=== PATIENT | female | born 1990 | race Caucasian/White ===

== ENCOUNTER 2016-06-10 12:47 | Emergency (ER) | payer MEDICAID ==
[2016-05-22 16:06] VITALS: Ht 152.4 cm; Wt 50.8 kg
[~2016-06-10] VITALS: Ht 152.4 cm; Wt 50.8 kg
[2016-06-10 12:47] VITALS: BP 116/51; PULSE 68; RESP 18; TEMP 97.1; O2SAT 98
[~2016-06-10 12:47] MED LIST: LORA-259 PO; PRO40 PO
[2016-11-08] MEDS ORDERED: ONDA4TAB5 PO (12:23)
[2016-11-08] MEDS ORDERED: OMEP20TA20 PO (12:24)
== END 2016-06-10 14:11 | disposition left against medical advice (07) ==
LOC: SED 12:47
DX: G43.A0 Cyclical vomiting, in migraine, not intractable (principal); F12.10 Cannabis abuse, uncomplicated; Z53.21 Procedure and treatment not carried out due to patient leaving prior to being seen by health care provider

== ENCOUNTER 2016-06-17 13:41 | Inpatient (IN) | payer MEDICAID ==
[2016-05-22 16:06] VITALS: Ht 152.4 cm; Wt 49.4 kg
[~2016-06-17] VITALS: Ht 152.4 cm; Wt 49.4 kg
[2016-06-17 13:50] VITALS: BP 149/90; PULSE 87; RESP 20; TEMP 97.5; O2SAT 99
[2016-06-17] MEDS ORDERED: NACL 0.9% 1,000 ML IV ONE (14:24)
[2016-06-17] MEDS ORDERED: KETOROLAC TROMETHAMINE 60 MG/2 ML VIAL IM ONE (14:30)
[2016-06-17] MEDS ORDERED: ONDANSETRON HCL 4 MG/2 ML VIAL IVP ONE (14:30)
[2016-06-17 14:33] LABS: MONOCYTES # (AUTO) 0.1 K/uL (0.0-1.0)
[2016-06-17 14:33] LABS: BILIRUBIN,URINE NEGATIVE (NEGATIVE); BLOOD, URINE NEGATIVE (NEGATIVE); CLARITY/URINE CLEAR (CLEAR); COLOR,URINE YELLOW (YELLOW); GLUCOSE,URINE NEGATIVE (NEGATIVE); KETONES,URINE 3+ (NEGATIVE); LEUKOCYTE ESTERASE ,URINE NEGATIVE (NEGATIVE); NITRITE, URINE NEGATIVE (NEGATIVE); PH,URINE 8.5 (5.0-8.0); PROTEIN URINE TRACE (NEGATIVE); UROBILINOGEN,URINE 0.2 (0.2-1.0)
[2016-06-17 14:40] LABS: MONOCYTES % (AUTO) 1.4 % (1.7-9.3)
[2016-06-17 14:43] LABS: INR 1.1 (0.8-1.2); PROTHROMBIN TIME 11.4 SECS (9.5-12.5)
[2016-06-17 14:44] LABS: BASOPHILS # (AUTO) 0.2 K/uL (0.0-0.2); BASOPHILS % (AUTO) 1.8 % (0.0-2.0); EOSINOPHILS % (AUTO) 0.1 % (0.0-4.0); HEMATOCRIT 51.4 % (36-48); HEMOGLOBIN 16.7 g/dL (12.0-16.0); LYMPHOCYTES # (AUTO) 0.8 K/uL (1.0-5.5); LYMPHOCYTES % (AUTO) 7.9 % (20.5-51.5); MEAN CORPUSCULAR HEMOGLOBIN 27 pg (27-31); MEAN CORPUSCULAR HGB CONC 33 % (32-36); MEAN CORPUSCULAR VOLUME 84 fL (79.0-98.0); NEUTROPHILS % (AUTO) 88.8 % (40.0-70.0); PLATELET COUNT (AUTO) 271 K/uL (130-430); RED BLOOD CELL COUNT(AUTO) 6.12 MIL/uL (4.2-6.2); RED CELL DISTRIBUTION WIDTH 13.6 % (9.0-15.0); WHITE BLOOD COUNT (AUTO) 10.1 K/uL (4.8-10.8)
[2016-06-17] MEDS ORDERED: KETOROLAC TROMETHAMINE 30 MG VIAL IVP ONE (14:45)
[2016-06-17 14:46] LABS: BACTERIA,URINE FEW /HPF (None Seen); MUCUS,URINE 2+ /LPF (None Seen); RBC,URINE 0-3 /HPF (0-3); WBC,URINE 0-3 /HPF (0-3)
[2016-06-17 14:50] LABS: BARBITURATE, URINE NEGATIVE (NEG <=200); BENZODIAZEPINE, URINE NEGATIVE (NEG <=150); CANNABINOID, URINE POSITIVE (NEG <=50); COCAINE, URINE NEGATIVE (NEG <=150); METHAMPHETAMINES SCREEN,URINE NEGATIVE (NEG <=500); UR TRICYCLIC ANTIDEPRESSANTS POSITIVE (NEG <=300); URINE AMPHETAMINE NEGATIVE (NEG <=500); URINE METHADONE NEGATIVE (NEG <=200)
[2016-06-17 14:51] LABS: OPIATE, URINE NEGATIVE (NEG <=100); PHENCYCLIDINE SCREEN,URINE NEGATIVE (NEG <=25); URINE OXYCODONE SCREEN NEGATIVE (NEG <=100); URINE PROPOXYPHENE SCREEN NEGATIVE (NEG <=300)
[2016-06-17 14:58] LABS: CALCIUM 10.7 mg/dL (8.4-11.0); CREATININE 0.63 mg/dL (0.55-1.30); POTASSIUM 4.1 mmol/L (3.5-5.1)
[2016-06-17 15:05] LABS: ALBUMIN 4.9 g/dL (3.4-4.8); TOTAL BILIRUBIN 0.9 mg/dL (0.0-1.0); TOTAL PROTEIN, SERUM 9.8 g/dL (6.4-8.3)
[2016-06-17] MEDS ORDERED: LORazepam 1 MG TABLET PO ONE (15:15)
[2016-06-17] MEDS ORDERED: LORazepam 2 MG/ML VIAL IVP ONE (15:30)
[2016-06-17] MEDS ORDERED: LORazepam 2 MG/ML VIAL (FOR ER USE) ONE (15:38)
[2016-06-17 16:33] VITALS: BP 129/85; PULSE 87; RESP 18; TEMP 97.2; O2SAT 96
[2016-06-17] MEDS ORDERED: MORPHINE 2 MG/ML INJ. SYRINGE IVP PRN (17:45)
[2016-06-17] MEDS ORDERED: PANTOPRAZOLE SODIUM 40 MG/VIAL (PROTONIX) IVP ONE (18:00)
[2016-06-17] MEDS: NACL 0.9% 1,000 ML IV SCH (18:09)
[2016-06-17] MEDS: ALBUTEROL SULFATE 2.5 MG/3 ML INH (20:20)
[2016-06-17] MEDS: LORazepam 2 MG/ML VIAL IM PRN (20:31)
[2016-06-17] MEDS ORDERED: ONDANSETRON HCL 4 MG/2 ML VIAL ONE (20:31)
[2016-06-17 21:00] VITALS: BP 129/85; PULSE 100
[2016-06-17] MEDS ORDERED: ALBUTEROL MDI INHALATION 8 GM INH INH SCH (21:00)
[2016-06-17] MEDS: ONDANSETRON HCL 4 MG/2 ML VIAL IVP PRN (21:20)
[2016-06-18] VITALS (7 sets, daily range): BP systolic 114–149; BP diastolic 76–106; PULSE 59–83; RESP 16–18; TEMP 96.9–98.9; O2SAT 98–100
[2016-06-18] MEDS: NACL 0.9% 1,000 ML IV SCH ×3 (04:29→23:17)
[2016-06-18] MEDS: ONDANSETRON HCL 4 MG/2 ML VIAL IVP PRN ×2 (06:26→18:48)
[2016-06-18] MEDS ORDERED: ONDANSETRON HCL 4 MG/2 ML VIAL ONE (06:29)
[2016-06-18 06:55] LABS: BASOPHILS % (AUTO) 0.2 % (0.0-2.0); EOSINOPHILS # (AUTO) 0.1 K/uL (0.0-0.4); EOSINOPHILS % (AUTO) 1.5 % (0.0-4.0); HEMATOCRIT 38.9 % (36-48); HEMOGLOBIN 13.1 g/dL (12.0-16.0); LYMPHOCYTES # (AUTO) 1.5 K/uL (1.0-5.5); LYMPHOCYTES % (AUTO) 18.7 % (20.5-51.5); MEAN CORPUSCULAR HEMOGLOBIN 28 pg (27-31); MEAN CORPUSCULAR HGB CONC 34 % (32-36); MEAN CORPUSCULAR VOLUME 84 fL (79.0-98.0); MONOCYTES # (AUTO) 0.6 K/uL (0.0-1.0); MONOCYTES % (AUTO) 7.3 % (1.7-9.3); NEUTROPHILS # (AUTO) 5.8 K/uL (1.8-7.7); NEUTROPHILS % (AUTO) 72.3 % (40.0-70.0); PLATELET COUNT (AUTO) 246 K/uL (130-430); RED BLOOD CELL COUNT(AUTO) 4.62 MIL/uL (4.2-6.2); RED CELL DISTRIBUTION WIDTH 13.8 % (9.0-15.0)
[2016-06-18] MEDS: ALBUTEROL SULFATE 2.5 MG/3 ML INH ×4 (07:00→20:01)
[2016-06-18 07:35] LABS: ALBUMIN 3.7 g/dL (3.4-4.8); CALCIUM 8.7 mg/dL (8.4-11.0); CREATININE 0.45 mg/dL (0.55-1.30); POTASSIUM 3.8 mmol/L (3.5-5.1); THYROID STIMULATING HORMONE 0.29 uIu/mL (0.34-4.82); TOTAL BILIRUBIN 0.5 mg/dL (0.0-1.0); TOTAL PROTEIN, SERUM 6.7 g/dL (6.4-8.3)
[2016-06-18] MEDS: LORazepam 2 MG/ML VIAL IM PRN ×3 (09:52→18:37)
[2016-06-18] MEDS: MORPHINE 2 MG/ML INJ. SYRINGE IVP PRN ×2 (09:53→18:47)
[2016-06-18] MEDS: PANTOPRAZOLE SODIUM 40 MG/VIAL (PROTONIX) IVP SCH (10:05)
[2016-06-19 00:05] VITALS: BP 115/74; PULSE 70; RESP 16; TEMP 97.9; O2SAT 98
[2016-06-19] MEDS: ONDANSETRON HCL 4 MG/2 ML VIAL IVP PRN (04:19)
[2016-06-19 04:24] VITALS: BP 118/76; PULSE 74; RESP 16; TEMP 98.4; O2SAT 98
[2016-06-19] MEDS: ALBUTEROL SULFATE 2.5 MG/3 ML INH ×2 (07:00→11:00)
[2016-06-19] MEDS: PANTOPRAZOLE SODIUM 40 MG/VIAL (PROTONIX) IVP SCH (07:35)
[2016-06-19 07:59] VITALS: BP 144/81; PULSE 70; RESP 20; TEMP 98.7; O2SAT 100
[2016-06-19] MEDS: LORazepam 2 MG/ML VIAL IM PRN (08:01)
[2016-06-19 11:12] LABS: CALCIUM 8.9 mg/dL (8.4-11.0); CREATININE 0.52 mg/dL (0.55-1.30); POTASSIUM 3.5 mmol/L (3.5-5.1)
[2016-06-19] MEDS ORDERED: HYDROcodone/ACETAMIN 5-325 MG TAB (NORCO/ VICODIN) PO PRN (11:15)
[2016-06-19 11:30] VITALS: BP 121/67; PULSE 70; RESP 19; TEMP 97.2; O2SAT 99
[2016-06-19 13:47] VITALS: BP 121/67; PULSE 70; RESP 19; TEMP 97.2; O2SAT 99
[2016-11-08] MEDS ORDERED: ONDA4TAB5 PO (12:23)
[2016-11-08] MEDS ORDERED: OMEP20TA20 PO (12:24)
== END 2016-06-19 14:15 | disposition home or self-care (01) | DRG 249 ==
LOC: SED 13:41 → STU 15:56
PROVIDERS: ADMIT Internal Medicine; ATTEND Internal Medicine
DX: R11.2 Nausea with vomiting, unspecified (principal); E87.1 Hypo-osmolality and hyponatremia; F41.9 Anxiety disorder, unspecified; R10.13 Epigastric pain; J45.909 Unspecified asthma, uncomplicated; F12.10 Cannabis abuse, uncomplicated; Y92.89 Other specified places as the place of occurrence of the external cause; Z90.49 Acquired absence of other specified parts of digestive tract; Z79.899 Other long term (current) drug therapy
CPT/HCPCS: 36415; 74020-TC; 80048; 80053; 80307; 81000-TC; 83690-TC; 83735-TC; 84439; 84443-TC; 84703; 85025; 85610-TC; 85730-TC; 87081; 93005; 94640; 94760; 96361; 96374; 96375; 99285; C9113; J1885; J2060; J2270; J2405; J7030

== ENCOUNTER 2016-08-07 09:36 | Emergency (ER) | payer MEDICAID ==
[~2016-08-07] VITALS: Ht 152.4 cm; Wt 49.9 kg
[2016-08-07] MEDS ORDERED: NACL 0.9% 1,000 ML IV ONE (09:44)
[2016-08-07 09:45] VITALS: BP_SYST 151
[2016-08-07] MEDS ORDERED: DEXAMETHASONE SOD PHOSPHATE 10 MG/ML VIAL IVP ONE (09:45)
[2016-08-07] MEDS ORDERED: KETOROLAC TROMETHAMINE 30 MG VIAL IVP ONE (09:45)
[2016-08-07] MEDS ORDERED: PROCHLORPERAZINE EDISYLATE 10 MG/2 ML VIAL IVP ONE (09:45)
[2016-08-07] MEDS ORDERED: ONDANSETRON HCL 4 MG/2 ML VIAL IVP ONE (09:45)
--- NOTE | 2016-08-07 09:45 | NUR ---
Patient to ER bed 04 to gown for evaluation. Side rails up.
--- NOTE | 2016-08-07 09:45 | NUR ---
Dr Mcwilliams at bedside examining patient
--- NOTE | 2016-08-07 09:46 | NUR ---
Pt AAOx4 c/o MICHELLE.Pt h.as sensitivity to noise stimuli and light. IV established 22G.
[2016-08-07 10:58] LABS: BILIRUBIN,URINE 1+ (NEGATIVE); BLOOD, URINE 3+ (NEGATIVE); CLARITY/URINE CLOUDY (CLEAR); COLOR,URINE ORANGE (YELLOW); GLUCOSE,URINE NEGATIVE (NEGATIVE); KETONES,URINE NEGATIVE (NEGATIVE); LEUKOCYTE ESTERASE ,URINE 2+ (NEGATIVE); NITRITE, URINE POSITIVE (NEGATIVE); PROTEIN URINE 3+ (NEGATIVE)
[2016-08-07 11:05] LABS: BACTERIA,URINE FEW /HPF (None Seen); RBC,URINE >100 /HPF (0-3); WBC,URINE 20-50 /HPF (0-3)
[2016-08-07 11:06] LABS: MUCUS,URINE 1+ /LPF (None Seen)
[2016-08-07 11:10] LABS: BASOPHILS % (AUTO) 0.4 % (0.0-2.0); EOSINOPHILS # (AUTO) 0.1 K/uL (0.0-0.4); EOSINOPHILS % (AUTO) 2.2 % (0.0-4.0); HEMOGLOBIN 12.4 g/dL (12.0-16.0); LYMPHOCYTES # (AUTO) 0.6 K/uL (1.0-5.5); MEAN CORPUSCULAR HEMOGLOBIN 28 pg (27-31); MEAN CORPUSCULAR HGB CONC 35 % (32-36); MEAN CORPUSCULAR VOLUME 82 fL (79.0-98.0); MONOCYTES # (AUTO) 0.4 K/uL (0.0-1.0); MONOCYTES % (AUTO) 10.1 % (1.7-9.3); NEUTROPHILS # (AUTO) 2.6 K/uL (1.8-7.7); NEUTROPHILS % (AUTO) 71.3 % (40.0-70.0); PLATELET COUNT (AUTO) 226 K/uL (130-430); RED CELL DISTRIBUTION WIDTH 12.2 % (9.0-15.0)
[2016-08-07 11:14] LABS: WHITE BLOOD COUNT (AUTO) 3.7 K/uL (4.8-10.8)
[2016-08-07 11:18] LABS: CALCIUM 7.6 mg/dL (8.4-11.0); CREATININE 0.55 mg/dL (0.55-1.30); POTASSIUM 3.1 mmol/L (3.5-5.1)
[2016-08-07 11:22] LABS: TOTAL BILIRUBIN 0.3 mg/dL (0.0-1.0); TOTAL PROTEIN, SERUM 5.9 g/dL (6.4-8.3)
--- NOTE | 2016-08-07 11:25 | NUR ---
Wilbarger of care received, pt ambulated to bathroom, states she does not have headache anymore, VSS, skin pink and warm, cap refill<3.
[2016-08-07] MEDS ORDERED: POTASSIUM CHLORIDE 20 MEQ TAB.PRT.SR PO ONE (11:30)
[2016-08-07 11:45] VITALS: BP_SYST 148
--- NOTE | 2016-08-07 11:49 | NUR ---
Patient given written and verbal discharge instructions and verbalizes understanding. ER MD discussed with patient the results and treatment provided.Patient in stable condition. ID arm band removed. IV catheter removed intact and dressing applied, no active bleeding. Rx of Nitrofurantoin given. Patient educated on pain management and to follow up with PMD. Pain Scale 0/10. Opportunity for questions provided and answered.
== END 2016-08-07 11:49 | disposition home or self-care (01) ==
LOC: SED 09:36
DX: G43.909 Migraine, unspecified, not intractable, without status migrainosus (principal); N39.0 Urinary tract infection, site not specified; R31.9 Hematuria, unspecified; E87.6 Hypokalemia; J45.909 Unspecified asthma, uncomplicated; R03.0 Elevated blood-pressure reading, without diagnosis of hypertension; Z87.891 Personal history of nicotine dependence
CPT/HCPCS: 36415; 80053; 81000; 82150; 83690; 85025; 87086; 96361; 96374; 96375; 99284; J0780; J1100; J1885; J2405; J7030

== ENCOUNTER 2016-10-20 09:38 | Inpatient (IN) | payer MEDICAID ==
[~2016-10-20] VITALS: Ht 152.4 cm; Wt 48.5 kg
[2016-10-20 09:41] VITALS: BP_SYST 135
--- NOTE | 2016-10-20 09:47 | NUR ---
Pt placed in room 6 c/c vomiting after smoking marijuana since 5am this morning. Endorsed care to Rossy CHEEMA.
[2016-10-20] MEDS ORDERED: NACL 0.9% 1,000 ML IV ONE (09:52)
[2016-10-20] MEDS ORDERED: ONDANSETRON HCL 4 MG/2 ML VIAL IVP ONE ×2 (10:00→10:30)
--- NOTE | 2016-10-20 10:00 | NUR ---
ER at bedside examining patient.
--- NOTE | 2016-10-20 10:13 | NUR ---
# 20 gauge angiocath placed to right hand. Use of asceptic technique. Opsite placed over site. Blood return noted.
[2016-10-20 10:29] LABS: CALCIUM 9.8 mg/dL (8.4-11.0); CREATININE 0.67 mg/dL (0.55-1.30); POTASSIUM 3.9 mmol/L (3.5-5.1)
[2016-10-20] MEDS ORDERED: MORPHINE 2 MG/ML INJ. SYRINGE IVP ONE ×2 (10:30→12:15)
[2016-10-20 10:33] LABS: BASOPHILS # (AUTO) 0.1 K/uL (0.0-0.2); BASOPHILS % (AUTO) 0.4 % (0.0-2.0); EOSINOPHILS # (AUTO) 0.3 K/uL (0.0-0.4); HEMOGLOBIN 15.8 g/dL (12.0-16.0); LYMPHOCYTES # (AUTO) 1.3 K/uL (1.0-5.5); LYMPHOCYTES % (AUTO) 9.3 % (20.5-51.5); MEAN CORPUSCULAR HEMOGLOBIN 27 pg (27-31); MEAN CORPUSCULAR HGB CONC 33 % (32-36); MEAN CORPUSCULAR VOLUME 83 fL (79.0-98.0); MONOCYTES # (AUTO) 0.3 K/uL (0.0-1.0); MONOCYTES % (AUTO) 2.1 % (1.7-9.3); NEUTROPHILS # (AUTO) 12.1 K/uL (1.8-7.7); PLATELET COUNT (AUTO) 330 K/uL (130-430); RED BLOOD CELL COUNT(AUTO) 5.81 MIL/uL (4.2-6.2); RED CELL DISTRIBUTION WIDTH 12.1 % (9.0-15.0); WHITE BLOOD COUNT (AUTO) 14.1 K/uL (4.8-10.8)
[2016-10-20 10:36] LABS: ALBUMIN 4.1 g/dL (3.4-4.8); TOTAL BILIRUBIN 0.4 mg/dL (0.0-1.0); TOTAL PROTEIN, SERUM 7.6 g/dL (6.4-8.3)
[2016-10-20 10:36] LABS: BILIRUBIN,URINE NEGATIVE (NEGATIVE); BLOOD, URINE 1+ (NEGATIVE); CLARITY/URINE CLEAR (CLEAR); COLOR,URINE YELLOW (YELLOW); GLUCOSE,URINE NEGATIVE (NEGATIVE); KETONES,URINE 1+ (NEGATIVE); LEUKOCYTE ESTERASE ,URINE 1+ (NEGATIVE); NITRITE, URINE NEGATIVE (NEGATIVE); PH,URINE 7.5 (5.0-8.0); PROTEIN URINE TRACE (NEGATIVE); UROBILINOGEN,URINE 0.2 (0.2-1.0)
[2016-10-20 10:48] LABS: BACTERIA,URINE MODERATE /HPF (None Seen); RBC,URINE 0-3 /HPF (0-3)
[2016-10-20 11:00] LABS: NEUTROPHILS % (AUTO) 86.2 % (40.0-70.0)
[2016-10-20] MEDS ORDERED: D5NS 1,000 ML IV ONE (12:15)
[2016-10-20] MEDS ORDERED: PROMETHAZINE HCL 25 MG/ML AMP IVP ONE (12:15)
--- NOTE | 2016-10-20 12:20 | NUR ---
CALL TO OBTAIN BED FOR ADMISSION, WILL CALL BACK.
--- NOTE | 2016-10-20 13:07 | NUR ---
Patient will be admitted to [facility]. Admitted to MS unit. Will go to room 135. Belongings list completed. Summary report printed. Report will be given at bedside.
[2016-10-20 13:22] VITALS: BP_SYST 146
--- NOTE | 2016-10-20 13:22 | NUR ---
ADMISSION: The patient, CHAPO OSPINA, 25 y/o, F admitted by WIL LEE MD, was given written information regarding hospital policies, unit procedures and contact persons.
--- NOTE | 2016-10-20 14:00 | NUR ---
ROUNDING NOTES, PT IN BED, NO SOB. C/O NAUSEA AND VOMITING. NOTED VOMITUS AT BEDSIDE IN THE BAG. GIVEN NAUSEA MEDICATIONS ORDERED. BED IN LOW POSITION. CALL LIGHT IN REACH. ENCOURAGED TO CALL FOR ASSIST AND PAIN MEDICATIONS. WILL CONT TO MONITOR.
--- NOTE | 2016-10-20 14:00 | NUR ---
OUNDING NOTES, PT IN BED, NO SOB. C/O NAUSEA AND VOMITING. BED IN LOW POSITION. CALL LIGHT IN REACH. IV FLUIDS INFUSING WELL. ENCOURAGED TO CALL FOR ASSIST AND PAIN MEDICATIONS. WILL CONT TO MONITOR.
[2016-10-20] MEDS: ONDANSETRON HCL 4 MG/2 ML VIAL IVP PRN ×2 (14:24→22:22)
--- NOTE | 2016-10-20 16:00 | NUR ---
DIONTE NOTES, PT IN BED, NO SOB. PT STILL VOMITING. GIVEN NAUSEA MEDICATIONS ORDERED. UNABLE TO GIVE MORE NAUSEA MEDICATIONS. P[T IS AWARE. TOLD PT THAT WE WILL CALL MD FOR MEDICATIONS. BED IN LOW POSITION. CALL LIGHT IN REACH. ENCOURAGED TO CALL FOR ASSIST AND PAIN MEDICATIONS. WILL CONT TO MONITOR.
--- NOTE | 2016-10-20 18:00 | NUR ---
ROUNDING NOTES, PAGED DR LEE AGAIN FOR NAUSEA MEDICATIONS. PT IN BED, NO SOB. C/O NAUSEA AND VOMITING. NOTED VOMITUS AT BEDSIDE IN THE BAG. GIVEN NAUSEA MEDICATIONS ORDERED. BED IN LOW POSITION. CALL LIGHT IN REACH. ENCOURAGED TO CALL FOR ASSIST TO PREVENT FALL. . WILL CONT TO MONITOR.
[2016-10-20] MEDS: METOCLOPRAMIDE HCL 10 MG/2 ML VIAL IVP PRN (18:55)
--- NOTE | 2016-10-20 18:55 | NUR ---
PT GIVEN REGLAN ORDERED FOR NAUSE AND VOMITING. WILL MONITOR.
[2016-10-20 20:00] VITALS: BP_SYST 152
--- NOTE | 2016-10-20 20:00 | NUR ---
Initial PM Note Pt is fully AAO x4. No acute distress noted. IVF is infusing well in left hand.
[2016-10-20] MEDS: MORPHINE 2 MG/ML INJ. SYRINGE IVP PRN (22:25)
--- NOTE | 2016-10-20 22:25 | NUR ---
Pain and Nausea Morphine 2mg and Zofran 4mg were given IV for c/o abdominal pain and nausea/vomiting with relief.
[2016-10-21 00:02] VITALS: BP_SYST 105
--- NOTE | 2016-10-21 01:00 | NUR ---
Rounds Pt is sleeping comfortably in bed.
--- NOTE | 2016-10-21 03:30 | NUR ---
Rounds Pt is sleeping without any respiratory distress noted.
[2016-10-21 04:09] VITALS: BP_SYST 103
--- NOTE | 2016-10-21 05:00 | NUR ---
Rounds Pt is resting comfortably in bed.
[2016-10-21] MEDS: ONDANSETRON HCL 4 MG/2 ML VIAL IVP PRN ×2 (05:43→14:32)
[2016-10-21] MEDS: MORPHINE 2 MG/ML INJ. SYRINGE IVP PRN ×4 (05:44→18:48)
--- NOTE | 2016-10-21 05:44 | NUR ---
Pain and Nausea Morphine 2mg and Zofran 4mg were given IV for c/o abdominal pain and nausea/vomiting with relief.
--- NOTE | 2016-10-21 06:58 | NUR ---
Closing Note Pt is resting comfortably in bed. All pt's needs were attended to. No fall or injury noted this shift. Will endorse to day shift nurse.
--- NOTE | 2016-10-21 07:55 | NUR ---
Nutrition Update Kennedy Scale 16 noted. Pt admitted for nausea, vomiting, back pain. Diet: clear liquid BMI: 20.9 kg/m2 RD to follow per nutrition care standards.
[2016-10-21 08:45] VITALS: BP_SYST 121
--- NOTE | 2016-10-21 09:15 | NUR ---
GI CONSULT CALLED TO DR FERRARO, RE: N/V. SPOKE TO JEFFREY
[2016-10-21] MEDS: D5NS 1,000 ML IV SCH ×2 (09:40→18:48)
--- NOTE | 2016-10-21 09:40 | NUR ---
Routine Patient requested med for 7/10 abdominal pain. PRN pain med given. Patient stable at this time.
[2016-10-21] MEDS: METOCLOPRAMIDE HCL 10 MG/2 ML VIAL IVP PRN ×2 (10:03→18:48)
--- NOTE | 2016-10-21 10:05 | NUR ---
Routine Patient requested nausea med. PRN nausea med given per order. Patient stable.
--- NOTE | 2016-10-21 12:20 | NUR ---
Patient ambulating in hallway. No complaint of pain or nausea at this time.
--- NOTE | 2016-10-21 13:30 | NUR ---
Routine Patient asleep. No distress noted at this time.
--- NOTE | 2016-10-21 18:54 | NUR ---
Routine Patient requested meds for nausea and 8/10 abdominal pain. PRN meds given per order. Patient stable throughout shift.
--- NOTE | 2016-10-21 19:43 | NUR ---
Initial PM Note Pt was received lying in bed fully AAO x4. Speech is clear and no acute distress noted. IVF is infusing well in left hand. Fall and safety precautions are in place. Will continue to monitor pt.
[2016-10-21 19:45] VITALS: BP_SYST 149
--- NOTE | 2016-10-21 22:10 | NUR ---
Ambulation Pt ambulated in the hallway with steady gait. IVF is infusing well in left hand.
[2016-10-22] MEDS: ONDANSETRON HCL 4 MG/2 ML VIAL IVP PRN ×3 (00:08→16:36)
[2016-10-22] MEDS: MORPHINE 2 MG/ML INJ. SYRINGE IVP PRN ×4 (00:08→16:36)
--- NOTE | 2016-10-22 00:08 | NUR ---
Pain and Nausea/Vomiting Morphine 2mg and Zofran 4mg were given IV for c/o abdominal pain and nausea/vomiting with relief.
--- NOTE | 2016-10-22 00:30 | NUR ---
IV Restart IV site in left hand slightly swollen and pt c/o pain at the site. Angiocath was removed intact. New IV line was restarted in rt wrist by Admitting Nurse Toy with Angiocath 22G.
--- NOTE | 2016-10-22 02:00 | NUR ---
Ambulation Pt ambulated in the hallway with steady gait. IVF is infusing well in rt wrist.
[2016-10-22] MEDS: METOCLOPRAMIDE HCL 10 MG/2 ML VIAL IVP PRN ×3 (02:38→21:58)
--- NOTE | 2016-10-22 02:38 | NUR ---
Nausea/Vomiting Reglan 10mg was given IV for nausea and vomiting with relief.
[2016-10-22 04:00] VITALS: BP_SYST 106
--- NOTE | 2016-10-22 04:06 | NUR ---
Pain Morphine 2mg was given IV for c/o abdominal pain with relief.
--- NOTE | 2016-10-22 04:50 | NUR ---
Ambulation Pt ambulated in the hallway with steady gait. IVF is infusing well.
[2016-10-22] MEDS: D5NS 1,000 ML IV SCH ×2 (06:34→16:42)
[2016-10-22 08:00] VITALS: BP_SYST 132
--- NOTE | 2016-10-22 09:26 | NUR ---
MD Rounds Dr. Keys spoke with patient at the bedside. MD entered orders for breathing treatments and Ativan. Patient stated feeling short of breath. Will administer indicated meds and reassess.
[2016-10-22] MEDS ORDERED: IPRATROPIUM BROM 0.5 MG/2.5 ML VIAL.NEB (ATROVENT) INH PRN (09:30)
[2016-10-22] MEDS ORDERED: ALBUTEROL SULFATE 0.083% 2.5 MG/3 ML VIAL.NEB INH PRN (09:30)
[2016-10-22] MEDS: LORazepam 2 MG/ML VIAL IVP PRN ×2 (10:19→21:58)
--- NOTE | 2016-10-22 10:50 | NUR ---
Rounds Patient is in stable condition. Will continue to monitor.
[2016-10-22 12:13] VITALS: BP_SYST 125
--- NOTE | 2016-10-22 12:50 | NUR ---
Rounds Patient is resting in bed. NO signs of distress noted.
--- NOTE | 2016-10-22 14:00 | NUR ---
Rounds Patient is ambulating around the unit.
--- NOTE | 2016-10-22 15:00 | NUR ---
DC planning: Informed pt. that she is ordered transferring to ins. network facilities ie. [facility], [facility], [facility] . The pt. refused the transfer. The pt. made aware that she might have to pay the hospital bill if refused transferring to network. she preferred to go home [phone] leave AMA rather than going to other hp. -- Dr. Sanchez made aware. Cedric BARKER made aware /GENI Herrera CM # [phone]. Addendum: 10/22/16 at 1707 by Mis Uribe RN >> late entry for 1600: No returned call from Sharon benz, another call to Frances # [phone] , stated " she will text Sharon to give me a call." Frances also made aware that the pt. refused transferring and wanted dc home instead. The pt. is symptomatic with vomiting today. Addendum: 10/22/16 at 1713 by Mis Uribe RN >> Called Sharon again at [phone], no answer. The message left to her voice mail to call back matthew or leave message at [phone] for tomorrow cm to speak with her. Addendum: 10/22/16 at 1740 by Mis Uribe RN >> Returned call from Sharon, stated she arranged pt. transferring to [facility] and since the pt. refused the transfer Sharon already cancel the bed. Once again, emelia with [facility] met with the pt , the md explained to her of her prognosis and benefits of transferring to other . the pt. confirming wants to be dc home. --Dr. Phoenix is okay for her to go home per pt. requests. -- DENI Goetz will call dr. sanchez for dc order. Addendum: 10/22/16 at 1744 by Mis Uribe RN >> Another call from DENI Goetz stated that the pt. now changed her mind and wanted to transfer to net work. -- LM to Sharon to assist with the transfer again.
[2016-10-22 16:05] VITALS: BP_SYST 122
--- NOTE | 2016-10-22 16:55 | NUR ---
Spoke with CM Patient has been accepted to contracted facility.
--- NOTE | 2016-10-22 17:30 | NUR ---
Rounds Patient is was refusing to be transferred and wanted to leave AMA. However she changed her mind and agreed to the transfer. Transfer arrangements have already been canceled and CM is gone for the day. Will inform Dr. Keys.
[2016-10-22 17:42] VITALS: BP_SYST 122
[2016-10-22] MEDS: ALBUTEROL SULFATE 0.083% 2.5 MG/3 ML VIAL.NEB INH SCH ×2 (19:00→23:00)
[2016-10-22] MEDS: IPRATROPIUM BROM 0.5 MG/2.5 ML VIAL.NEB (ATROVENT) INH SCH ×2 (19:00→23:00)
--- NOTE | 2016-10-22 19:20 | NUR ---
Closing Note Spoke with Dr. Keys to inform that patient has agreed to transfer but unfortunately all arrangements were canceled because she was refusing transfer. She is aware that she will be financially responsible for any medical expenses not covered by the insurance. Will give report to the oncoming shift.
--- NOTE | 2016-10-22 19:31 | NUR ---
paged paged for Dr Keys, dialed . s/w Jayna.
--- NOTE | 2016-10-22 20:00 | NUR ---
DR ROSA SMITH , updated & made aware patient discharge is on hold , patient did REFUSE to be d/c .
[2016-10-22 21:00] VITALS: BP_SYST 133
--- NOTE | 2016-10-22 22:00 | NUR ---
Patient awake alert ambulating in Chung verbally indicative respirations regular also unlabored .
--- NOTE | 2016-10-22 23:32 | NUR ---
Lorazepam 1 mg ivp administer per patient request for anxiety & helpful .
--- NOTE | 2016-10-22 23:33 | NUR ---
Reglan 10 mg IVP administer for GI upset and helpful .
[2016-10-23 00:11] VITALS: BP_SYST 112
--- NOTE | 2016-10-23 00:54 | NUR ---
Patient resting this hour HOB elevated call ley with patient bed to low position FALL measures implemented & effective .
[2016-10-23] MEDS: ONDANSETRON HCL 4 MG/2 ML VIAL IVP PRN (01:53)
[2016-10-23] MEDS: MORPHINE 2 MG/ML INJ. SYRINGE IVP PRN (01:54)
[2016-10-23 04:19] VITALS: BP_SYST 110
--- NOTE | 2016-10-23 04:19 | NUR ---
ZOFRAN 4 MG IVP administer for c/o GI upset & helpful , patient resting no complaints made .
[2016-10-23] MEDS: D5NS 1,000 ML IV SCH (06:14)
[2016-10-23] MEDS: IPRATROPIUM BROM 0.5 MG/2.5 ML VIAL.NEB (ATROVENT) INH SCH ×3 (07:00→15:00)
[2016-10-23] MEDS: ALBUTEROL SULFATE 0.083% 2.5 MG/3 ML VIAL.NEB INH SCH ×3 (07:00→15:00)
--- NOTE | 2016-10-23 08:10 | NUR ---
Opening Note Report received form Tom CHEEMA. Patient is currently in stable condition and is sleeping in bed. No nausea or vomiting noted. Call light is within reach. Bed is in low position. IV is on the right wrist running D5NS@100. Will continue to monitor.
[2016-10-23 08:21] VITALS: BP_SYST 134
--- NOTE | 2016-10-23 10:02 | NUR ---
Rounds Patient is in stable condition. No complaints of pain or n/v.
--- NOTE | 2016-10-23 11:05 | NUR ---
PAGED DR LEE [phone], SAIRA QUINONES
--- NOTE | 2016-10-23 12:10 | NUR ---
Rounds Patient is resting in bed. No signs of distress noted.
[2016-10-23 12:57] VITALS: BP_SYST 125
--- NOTE | 2016-10-23 14:10 | NUR ---
Rounds Let the patient know that MD is in the unit and will see her shortly. Patient verbalized understanding.
[2016-10-23 15:00] VITALS: BP_SYST 124
--- NOTE | 2016-10-23 15:25 | NUR ---
AMA Note Let the patient know that Dr. Wagoner is covering for Dr. Keys and will be in to see her shortly. Patient stated that she is familiar with Dr. Wagoner and has spoken to him many times during prior hospitalizations. She stated that it is not necessary for her to speak with Dr. Wagoner. Patient was advised of the importance of being assessed by an MD prior to leaving the hospital. She was also advised that she will be liable for medical expenses if she decides to leave against medical advise. Patient verbalized understanding of all instructions and signed the AMA form. ID band and IV site were removed. Boyfriend is at the bedside and will take the patient home. Dr. Wagoner made aware that the patient decided to leave AMA. Patient is in stable condition. She has not experienced nausea or vomiting throughout the shift. Left the unit via wheelchair accompanied by staff and her boyfriend.
== END 2016-10-23 15:30 | disposition left against medical advice (07) | DRG 770 ==
LOC: SED 09:38 → SMU 12:11
PROVIDERS: ADMIT Internal Medicine Hospice and Palliative Medicine; ATTEND Internal Medicine Hospice and Palliative Medicine
DX: F12.988 Cannabis use, unspecified with other cannabis-induced disorder (principal); F19.10 Other psychoactive substance abuse, uncomplicated; Z53.21 Procedure and treatment not carried out due to patient leaving prior to being seen by health care provider; J45.909 Unspecified asthma, uncomplicated; Z90.49 Acquired absence of other specified parts of digestive tract
CPT/HCPCS: 36415; 76700-TC; 80053; 81000-TC; 83690-TC; 85025; 87086; 94640; 94760; 96374; 96375; 96376; 99285; J2060; J2270; J2405; J2550; J2765; J7030; J7042

== ENCOUNTER 2016-11-08 23:41 | Emergency (ER) | payer MEDICAID ==
[~2016-11-08] VITALS: Ht 154.9 cm; Wt 53.1 kg
[~2016-11-08 23:41] MED LIST changes: -LORA-259 PO; +OMEP20TA20 PO; +ONDA4TAB5 PO; -PRO40 PO
[2016-11-08 23:45] VITALS: BP_SYST 147
[2016-11-09 01:10] LABS: BILIRUBIN,URINE NEGATIVE (NEGATIVE); BLOOD, URINE NEGATIVE (NEGATIVE); CLARITY/URINE CLOUDY (CLEAR); COLOR,URINE YELLOW (YELLOW); GLUCOSE,URINE NEGATIVE (NEGATIVE); KETONES,URINE 3+ (NEGATIVE); LEUKOCYTE ESTERASE ,URINE 1+ (NEGATIVE); NITRITE, URINE NEGATIVE (NEGATIVE); PROTEIN URINE TRACE (NEGATIVE); UROBILINOGEN,URINE 0.2 (0.2-1.0)
[2016-11-09 01:23] LABS: BARBITURATE, URINE NEGATIVE (NEG <=200); BENZODIAZEPINE, URINE POSITIVE (NEG <=150); CANNABINOID, URINE POSITIVE (NEG <=50); COCAINE, URINE NEGATIVE (NEG <=150); METHAMPHETAMINES SCREEN,URINE NEGATIVE (NEG <=500); OPIATE, URINE POSITIVE (NEG <=100); PHENCYCLIDINE SCREEN,URINE NEGATIVE (NEG <=25); UR TRICYCLIC ANTIDEPRESSANTS NEGATIVE (NEG <=300); URINE AMPHETAMINE NEGATIVE (NEG <=500); URINE METHADONE NEGATIVE (NEG <=200); URINE OXYCODONE SCREEN NEGATIVE (NEG <=100); URINE PROPOXYPHENE SCREEN NEGATIVE (NEG <=300)
[2016-11-09 01:27] LABS: BACTERIA,URINE FEW /HPF (None Seen); RBC,URINE 0-3 /HPF (0-3)
[2016-11-09 01:28] LABS: MUCUS,URINE None Seen /LPF (None Seen); URINE AMORPHOUS PHOSPHATES 3+ /HPF (None Seen)
[2016-11-09] MEDS ORDERED: NACL 0.9% 1,000 ML IV ONE ×2 (02:37→04:30)
[2016-11-09] MEDS ORDERED: ONDANSETRON 4 MG ODT TAB PO ONE (02:45)
[2016-11-09] MEDS ORDERED: LORazepam 1 MG TABLET PO ONE (02:45)
[2016-11-09 03:12] LABS: BASOPHILS # (AUTO) 0.1 K/uL (0.0-0.2); BASOPHILS % (AUTO) 0.6 % (0.0-2.0); EOSINOPHILS % (AUTO) 0.1 % (0.0-4.0); HEMATOCRIT 46.1 % (36-48); HEMOGLOBIN 15.3 g/dL (12.0-16.0); LYMPHOCYTES # (AUTO) 0.9 K/uL (1.0-5.5); LYMPHOCYTES % (AUTO) 7.6 % (20.5-51.5); MEAN CORPUSCULAR HEMOGLOBIN 27 pg (27-31); MEAN CORPUSCULAR HGB CONC 33 % (32-36); MEAN CORPUSCULAR VOLUME 82 fL (79.0-98.0); MONOCYTES # (AUTO) 0.2 K/uL (0.0-1.0); MONOCYTES % (AUTO) 1.8 % (1.7-9.3); NEUTROPHILS # (AUTO) 11.2 K/uL (1.8-7.7); NEUTROPHILS % (AUTO) 89.9 % (40.0-70.0); PLATELET COUNT (AUTO) 384 K/uL (130-430); RED BLOOD CELL COUNT(AUTO) 5.63 MIL/uL (4.2-6.2); RED CELL DISTRIBUTION WIDTH 12.3 % (9.0-15.0); WHITE BLOOD COUNT (AUTO) 12.4 K/uL (4.8-10.8)
[2016-11-09] MEDS ORDERED: LORazepam 2 MG/ML VIAL IVP ONE (03:15)
[2016-11-09] MEDS ORDERED: ONDANSETRON HCL 4 MG/2 ML VIAL IVP ONE (03:15)
[2016-11-09 03:18] LABS: CREATININE 0.76 mg/dL (0.55-1.30)
[2016-11-09 03:23] LABS: ALBUMIN 4.4 g/dL (3.4-4.8); TOTAL BILIRUBIN 0.6 mg/dL (0.0-1.0); TOTAL PROTEIN, SERUM 8.3 g/dL (6.4-8.3)
[2016-11-09 03:31] LABS: POTASSIUM 2.9 mmol/L (3.5-5.1)
[2016-11-09] MEDS ORDERED: LORazepam 2 MG/ML VIAL (FOR ER USE) ONE (03:39)
[2016-11-09] MEDS ORDERED: POTASSIUM CHLORIDE 20 MEQ TAB.PRT.SR PO ONE (03:45)
[2016-11-09] MEDS ORDERED: PROMETHAZINE HCL 25 MG/ML AMP IM ONE (04:30)
[2016-11-09 06:40] VITALS: BP_SYST 123
== END 2016-11-09 06:40 | disposition home or self-care (01) ==
LOC: SED 23:41
DX: K29.70 Gastritis, unspecified, without bleeding (principal); E86.0 Dehydration; N39.0 Urinary tract infection, site not specified; J45.909 Unspecified asthma, uncomplicated; F41.9 Anxiety disorder, unspecified
CPT/HCPCS: 36415; 80053; 80307; 81000; 85025; 87086; 96361; 96372; 96374; 96375; 99284; J2060; J2405; J2550; J7030; Q0162

== ENCOUNTER 2016-11-09 17:27 | Inpatient (IN) | payer MEDICAID ==
[~2016-11-09] VITALS: Ht 152.4 cm; Wt 57.6 kg
[2016-11-09 17:36] VITALS: BP_SYST 167
[2016-11-09 18:27] LABS: BASOPHILS # (AUTO) 0.1 K/uL (0.0-0.2); BASOPHILS % (AUTO) 0.5 % (0.0-2.0); EOSINOPHILS # (AUTO) 0.1 K/uL (0.0-0.4); EOSINOPHILS % (AUTO) 0.7 % (0.0-4.0); HEMATOCRIT 44.5 % (36-48); HEMOGLOBIN 14.6 g/dL (12.0-16.0); LYMPHOCYTES # (AUTO) 1.8 K/uL (1.0-5.5); MEAN CORPUSCULAR HEMOGLOBIN 27 pg (27-31); MEAN CORPUSCULAR HGB CONC 33 % (32-36); MEAN CORPUSCULAR VOLUME 82 fL (79.0-98.0); MONOCYTES # (AUTO) 0.3 K/uL (0.0-1.0); MONOCYTES % (AUTO) 3.1 % (1.7-9.3); NEUTROPHILS # (AUTO) 8.7 K/uL (1.8-7.7); NEUTROPHILS % (AUTO) 79.7 % (40.0-70.0); PLATELET COUNT (AUTO) 361 K/uL (130-430); RED BLOOD CELL COUNT(AUTO) 5.44 MIL/uL (4.2-6.2); RED CELL DISTRIBUTION WIDTH 12.4 % (9.0-15.0)
[2016-11-09 18:29] LABS: ANION GAP 15 (5-15); CALCIUM 8.7 mg/dL (8.4-11.0); CHLORIDE 105 mmol/L (98-107); GLUCOSE 113 mg/dL (70-99); POTASSIUM 3.4 mmol/L (3.5-5.1); SODIUM SERUM 140 mmol/L (136-145); UREA NITROGEN, BLOOD 8 mg/dL (8-21)
[2016-11-09 18:30] LABS: GFR AFRICAN AMERICAN 132 mL/min (>90)
[2016-11-09 18:35] LABS: ALANINE AMINOTRANSFERASE 34 U/L (12-78); ALBUMIN 4.1 g/dL (3.4-4.8); ASPARTATE AMINOTRANSFERASE 23 U/L (10-37); TOTAL BILIRUBIN 0.9 mg/dL (0.0-1.0); TOTAL PROTEIN, SERUM 7.5 g/dL (6.4-8.3)
[2016-11-09 18:36] LABS: ALCOHOL, BLOOD < 3 mg/dL (<10)
[2016-11-09 18:37] LABS: SALICYLATE 2 mg/dL (3-30)
[2016-11-09 18:39] LABS: ACETAMINOPHEN < 1 ug/mL (1-30)
[2016-11-09 18:43] LABS: BILIRUBIN,URINE NEGATIVE (NEGATIVE); BLOOD, URINE NEGATIVE (NEGATIVE); CLARITY/URINE CLEAR (CLEAR); COLOR,URINE YELLOW (YELLOW); GLUCOSE,URINE NEGATIVE (NEGATIVE); KETONES,URINE 1+ (NEGATIVE); LEUKOCYTE ESTERASE ,URINE NEGATIVE (NEGATIVE); NITRITE, URINE NEGATIVE (NEGATIVE); PROTEIN URINE NEGATIVE (NEGATIVE); UROBILINOGEN,URINE 0.2 (0.2-1.0)
[2016-11-09 18:57] LABS: BARBITURATE, URINE NEGATIVE (NEG <=200); BENZODIAZEPINE, URINE POSITIVE (NEG <=150); CANNABINOID, URINE POSITIVE (NEG <=50); COCAINE, URINE NEGATIVE (NEG <=150); METHAMPHETAMINES SCREEN,URINE NEGATIVE (NEG <=500); OPIATE, URINE POSITIVE (NEG <=100); PHENCYCLIDINE SCREEN,URINE NEGATIVE (NEG <=25); UR TRICYCLIC ANTIDEPRESSANTS NEGATIVE (NEG <=300); URINE AMPHETAMINE NEGATIVE (NEG <=500); URINE METHADONE NEGATIVE (NEG <=200); URINE OXYCODONE SCREEN NEGATIVE (NEG <=100); URINE PROPOXYPHENE SCREEN NEGATIVE (NEG <=300)
--- NOTE | 2016-11-09 20:05 | NUR ---
Placed in room 08 . Placed on manager monitoring, blood pressure machine and pulse oximeter. To gown for exam. Side rails up. Report given to DENI Dixon.
--- NOTE | 2016-11-09 20:10 | NUR ---
Patient to ER C/O LLQ abdominal pain 4/10 and continuous vomiting for the past 4-5 days. Patient denies diarrhea or constipation. Patient has been seen in ER 3 days in a row, and admitted the first time for intractable nausea and vomiting. Patient states that she did not refill her prescription and admits to continue smoking pot. Patient has been observed in ER with her finger in the mouth inducing emesis. AAOx4, unlabored breathing, no acute distress.
--- NOTE | 2016-11-09 20:17 | NUR ---
ER MD HUANG at bedside evaluating the patient
[2016-11-09] MEDS ORDERED: ONDANSETRON HCL 4 MG/2 ML VIAL IVP ONE (20:30)
[2016-11-09] MEDS ORDERED: NACL 0.9% 1,000 ML IV ONE (20:30)
--- NOTE | 2016-11-09 20:43 | NUR ---
Medication reconciliation completed with information provided by - patient states "no home meds". Any prior medication reconciliation on file was reviewed and corrected.
[2016-11-09] MEDS ORDERED: POTASSIUM CHLORIDE 10 MEQ TAB.PRT.SR PO ONE (20:45)
--- NOTE | 2016-11-09 21:06 | NUR ---
Patient will be admitted to care of DR GAYTAN. Admitted to TELE IN unit. Will go to room 135. Belongings list completed. Summary report printed. Report will be given at bedside.
--- NOTE | 2016-11-09 21:10 | NUR ---
Transfer to [facility] via ACLS protocol. Licensed nurse present. IV present no signs or symptoms of infiltration.
[2016-11-09] MEDS: PANTOPRAZOLE SODIUM 40 MG/VIAL (PROTONIX) IVP SCH (21:15)
--- NOTE | 2016-11-09 21:17 | NUR ---
ADMISSION NOTE Received patient from ER via obed, received report from Destiny CHEEMA. Patient admitted with diagnosis of hypokalemia. Patient oriented to hospital routine, call light, toileting and safety-patient verbalized understanding.
[2016-11-09 21:22] VITALS: BP_SYST 152
[2016-11-09] MEDS ORDERED: PANTOPRAZOLE SODIUM 40 MG/VIAL (PROTONIX) IVP ONE (21:45)
--- NOTE | 2016-11-09 21:45 | NUR ---
Ambulation Pt ambulated to the bathroom with steady gait to urinate and back to bed with steady gait. IVF is infusing well in right wrist. Call light is with pt. Pt was instructed to call for assistance as needed and pt verbalized understanding.
--- NOTE | 2016-11-09 22:20 | NUR ---
Dr. Canchola Spoke with Dr. Jesika Lai: follow up IVF and pain medication orders. Dr. Canchola stated she will input some orders. Addendum: 11/09/16 at 2222 by Dalia Ty RN Pt is requesting medication for abdominal pain.
[2016-11-09] MEDS ORDERED: ACETAMINOPHEN 650 MG SUPP.RECT RC PRN (22:45)
[2016-11-09] MEDS ORDERED: LORazepam 2 MG/ML VIAL IVP PRN (22:45)
[2016-11-09] MEDS ORDERED: METOCLOPRAMIDE HCL 10 MG/2 ML VIAL IVP PRN (22:45)
[2016-11-09] MEDS ORDERED: MORPHINE 2 MG/ML INJ. SYRINGE IVP PRN ×2 (22:45)
--- NOTE | 2016-11-09 23:12 | NUR ---
Rounds Pt is resting quietly in bed. Awaiting delivery of IVF with KCL from Airplane Flight Attendant Supervisor.
[2016-11-09 23:15] LABS: HCG,QUAL RESULT NEGATIVE (NEGATIVE)
[2016-11-09] MEDS: KCL 20 mEq in D5/0.45NS 1000mL 1,000 ML IV SCH (23:29)
[2016-11-10 00:35] VITALS: BP_SYST 125
--- NOTE | 2016-11-10 01:00 | NUR ---
Rounds Pt is sleeping without any distress noted. Call light is with pt and IVF is infusing well in Rt wrist.
--- NOTE | 2016-11-10 01:30 | NUR ---
CONSULT: CONSULT CALLED FOR DR. GIPSON I SPOKE WITH MERNA DE DIOS WORKFORCE MANAGEMENT CONSULTANT FOR LEONELA REASON FOR CONSULT: NV. ABD PAIN REQUESTING DR: LUKAS RODRIGUEZ NUMBER I CALLED: [phone]
[2016-11-10] MEDS: ONDANSETRON HCL 4 MG/2 ML VIAL IVP PRN ×2 (02:16→08:54)
--- NOTE | 2016-11-10 02:16 | NUR ---
Nausea Zofran 4mg given IV for c/o severe nausea.
--- NOTE | 2016-11-10 02:25 | NUR ---
Ambulation Pt ambulated in the hallway with steady gait.
--- NOTE | 2016-11-10 02:33 | NUR ---
Anxiety Ativan 0.5mg given IV for c/o severe anxiety.
--- NOTE | 2016-11-10 03:00 | NUR ---
Rounds Pt is sleeping comfortably in bed. No respiratory distress noted.
[2016-11-10 04:00] VITALS: BP_SYST 105
--- NOTE | 2016-11-10 05:00 | NUR ---
Rounds Pt is sleeping comfortably in bed. IVF is infusing well in right wrist. Fall and safety precautions are in place.
[2016-11-10 06:10] VITALS: BP_SYST 98
--- NOTE | 2016-11-10 06:40 | NUR ---
Closing Note Pt is awake and resting comfortably in bed. All pt's needs were attended to. No fall or injury noted this shift. Will endorse to day shift nurse.
[2016-11-10 07:30] LABS: BASOPHILS % (AUTO) 0.1 % (0.0-2.0); EOSINOPHILS # (AUTO) 0.1 K/uL (0.0-0.4); EOSINOPHILS % (AUTO) 0.5 % (0.0-4.0); HEMATOCRIT 41.5 % (36-48); HEMOGLOBIN 13.9 g/dL (12.0-16.0); LYMPHOCYTES # (AUTO) 1.6 K/uL (1.0-5.5); MEAN CORPUSCULAR HEMOGLOBIN 28 pg (27-31); MEAN CORPUSCULAR HGB CONC 33 % (32-36); MEAN CORPUSCULAR VOLUME 83 fL (79.0-98.0); MONOCYTES # (AUTO) 0.7 K/uL (0.0-1.0); MONOCYTES % (AUTO) 6.6 % (1.7-9.3); NEUTROPHILS # (AUTO) 8.7 K/uL (1.8-7.7); NEUTROPHILS % (AUTO) 78.8 % (40.0-70.0); PLATELET COUNT (AUTO) 295 K/uL (130-430); RED BLOOD CELL COUNT(AUTO) 4.99 MIL/uL (4.2-6.2); RED CELL DISTRIBUTION WIDTH 12.5 % (9.0-15.0); WHITE BLOOD COUNT (AUTO) 11.1 K/uL (4.8-10.8)
[2016-11-10 07:32] LABS: ALBUMIN 3.5 g/dL (3.4-4.8); BILIRUBIN,DIRECT 0.1 mg/dL (0.0-0.3); CALCIUM 7.7 mg/dL (8.4-11.0); CREATININE 0.57 mg/dL (0.55-1.30); POTASSIUM 3.1 mmol/L (3.5-5.1); TOTAL BILIRUBIN 0.6 mg/dL (0.0-1.0); TOTAL PROTEIN, SERUM 6.8 g/dL (6.4-8.3)
[2016-11-10] MEDS: KCL 20 mEq in D5/0.45NS 1000mL 1,000 ML IV SCH (07:37)
--- NOTE | 2016-11-10 07:38 | NUR ---
INITIAL NOTE RECEIVED PATIENT FROM COMMUNITY HEALTH COORDINATOR NURSE, PATIENT IS RESTING IN BED, PATIENT IS AWAKE AND ALERT AND ORIENTED X4, ASSESSMENT COMPLETE, PATIENT IS IV IN RIGHT WRIST WITH FLUIDS RUNNING, NO SIGNS OF INFILTRATION NOTED, INSTRUCTED PATIENT TO USE CALL HERNÁNDEZ IF ASSISTANCE IS NEEDED, PATIENT VERBALIZED UNDERSTANDING, NO OTHER NEEDS AT THIS TIME, BED LEFT IN LOWEST POSITION, SIDE RAILS UP, FALL PRECAUTIONS IN PLACE, WILL CONTINUE TO MONITOR.
[2016-11-10 08:10] VITALS: BP_SYST 121
[2016-11-10] MEDS: PANTOPRAZOLE SODIUM 40 MG/VIAL (PROTONIX) IVP SCH (08:48)
--- NOTE | 2016-11-10 08:50 | NUR ---
MEDICATION PATIENT RECEIVED MORNING MEDICATION, REEDUCATED PATIENT ON REASON FOR MEDICATION, PATIENT VERBALIZED UNDERSTANDING, NO OTHER NEEDS AT THIS TIME, WILL CONTINUE TO MONITOR. FALL PRECAUTIONS IN PLACE.
[2016-11-10] MEDS ORDERED: POTASSIUM CHLORIDE 40 MEQ, LIDOCAINE JECT 2% PF 100 MG 50 MG in NS 250 ML IV ONE (09:15)
--- NOTE | 2016-11-10 10:27 | NUR ---
RN ROUNDS PATIENT IS CURRENTLY RESTING IN BED, NO SIGNS OF DISTRESS NOTED, PATIENT HAS NO COMPLAINTS OF PAIN OR DISCOMFORT AT THIS TIME, WILL CONTINUE TO MONITOR, FALL PRECAUTIONS IN PLACE.
[2016-11-10 12:00] VITALS: BP_SYST 124
--- NOTE | 2016-11-10 12:15 | NUR ---
RN ROUNDS PATIENT IS LYING IN BED WATCHING TV, PATIENT HAS NO COMPLAINTS OF PAIN OR DISCOMFORT AT THIS TIME, WILL CONTINUE TO MONITOR.
--- NOTE | 2016-11-10 12:35 | NUR ---
DC PLANNING: S/W patient regarding transferring to [facility] work/[facility] and capped to [facility]. The pt. was readmitted x2 this week with same problems. She refused transferring from [facility] her home is closed by. She stated " she will leave AMA if she is not discharged home." Advised pt. to change her insurance that covers [facility] if she does not want to be transferred anywhere else as per her current [facility]. policy. The pt. stated she will contact her pmd and [facility] to arrange for the changed of insurance.- Dr. Canchola made aware. >> Ami at [facility] made aware, contact # [phone].
--- NOTE | 2016-11-10 13:44 | NUR ---
RN ROUNDS PATIENT IS RESTING IN BED, PATIENT STATED SHE IS THINKING ABOUT SIGNING AGAINST MEDICAL ADVISE, EXPLAINED TO PATIENT RISK FACTOR WHEN SIGNING OUT AMA, PATIENT STATED SHE FEELS MUCH BETTER, WILL CONTINUE TO MONITOR, FALL PRECAUTIONS IN PLACE
--- NOTE | 2016-11-10 14:15 | NUR ---
AMA: Patient does not wish to proceed with medical care recommended by . Patient given information related to possible complications, up to and including , which could occur as a result of leaving hospital at this time. Patient verbalizes understanding of risks involved leaving against medical advice. Patient has signed AMA form.
== END 2016-11-10 14:15 | disposition left against medical advice (07) | DRG 812 ==
LOC: SED 17:27 → STU 21:07
PROVIDERS: ADMIT Internal Medicine; ATTEND Internal Medicine
DX: T40.7X1A Poisoning by cannabis (derivatives), accidental (unintentional), initial encounter (principal); E87.6 Hypokalemia; F41.9 Anxiety disorder, unspecified; Z53.21 Procedure and treatment not carried out due to patient leaving prior to being seen by health care provider; F12.90 Cannabis use, unspecified, uncomplicated; G43.A0 Cyclical vomiting, in migraine, not intractable; J45.909 Unspecified asthma, uncomplicated; Z79.899 Other long term (current) drug therapy; Z90.49 Acquired absence of other specified parts of digestive tract; Z71.51 Drug abuse counseling and surveillance of drug abuser; Y92.89 Other specified places as the place of occurrence of the external cause
CPT/HCPCS: 36415; 80048; 80053; 80076; 80307; 81003; 82150-TC; 83690-TC; 83735-TC; 84703; 85025; 87081; 93005; 96361; 96374; 96375; 99285; C9113; G0480; G0481; G0482; J2060; J2405; J3480; J7030; J7050

== ENCOUNTER 2016-12-18 19:02 | Emergency (ER) | payer MEDICAID ==
[~2016-12-18] VITALS: Ht 152.4 cm; Wt 54.4 kg
[2016-12-18 19:17] VITALS: BP_SYST 133
[2016-12-18] MEDS ORDERED: NACL 0.9% 1,000 ML IV ONE (19:45)
[2016-12-18] MEDS ORDERED: ONDANSETRON HCL 4 MG/2 ML VIAL IVP ONE (19:45)
[2016-12-18] MEDS ORDERED: DIPHENHYDRAMINE INJ 50 MG/ML VIAL IVP ONE (19:45)
[2016-12-18 19:55] LABS: BILIRUBIN,URINE NEGATIVE (NEGATIVE); BLOOD, URINE NEGATIVE (NEGATIVE); CLARITY/URINE CLEAR (CLEAR); COLOR,URINE YELLOW (YELLOW); GLUCOSE,URINE NEGATIVE (NEGATIVE); KETONES,URINE 1+ (NEGATIVE); LEUKOCYTE ESTERASE ,URINE TRACE (NEGATIVE); NITRITE, URINE NEGATIVE (NEGATIVE); PH,URINE 8.5 (5.0-8.0); PROTEIN URINE 2+ (NEGATIVE); UROBILINOGEN,URINE 0.2 (0.2-1.0)
[2016-12-18 20:10] LABS: BACTERIA,URINE FEW /HPF (None Seen); RBC,URINE 0-3 /HPF (0-3)
[2016-12-18 20:11] LABS: MUCUS,URINE 1+ /LPF (None Seen)
[2016-12-18 20:27] LABS: BASOPHILS % (AUTO) 0.3 % (0.0-2.0); EOSINOPHILS % (AUTO) 0.1 % (0.0-4.0); HEMATOCRIT 44.7 % (36-48); HEMOGLOBIN 14.9 g/dL (12.0-16.0); LYMPHOCYTES # (AUTO) 1.1 K/uL (1.0-5.5); LYMPHOCYTES % (AUTO) 10.6 % (20.5-51.5); MEAN CORPUSCULAR HEMOGLOBIN 27 pg (27-31); MEAN CORPUSCULAR HGB CONC 33 % (32-36); MEAN CORPUSCULAR VOLUME 81 fL (79.0-98.0); MONOCYTES # (AUTO) 0.4 K/uL (0.0-1.0); MONOCYTES % (AUTO) 3.5 % (1.7-9.3); NEUTROPHILS # (AUTO) 9.3 K/uL (1.8-7.7); NEUTROPHILS % (AUTO) 85.5 % (40.0-70.0); PLATELET COUNT (AUTO) 335 K/uL (130-430); RED BLOOD CELL COUNT(AUTO) 5.52 MIL/uL (4.2-6.2); RED CELL DISTRIBUTION WIDTH 12.5 % (9.0-15.0); WHITE BLOOD COUNT (AUTO) 10.8 K/uL (4.8-10.8)
[2016-12-18 20:31] LABS: CALCIUM 9.7 mg/dL (8.4-11.0); CREATININE 0.62 mg/dL (0.55-1.30); POTASSIUM 3.4 mmol/L (3.5-5.1)
[2016-12-18 20:36] LABS: ALBUMIN 4.5 g/dL (3.4-4.8); TOTAL BILIRUBIN 0.7 mg/dL (0.0-1.0); TOTAL PROTEIN, SERUM 8.2 g/dL (6.4-8.3)
[2016-12-18 22:30] VITALS: BP_SYST 102
== END 2016-12-18 22:30 | disposition home or self-care (01) ==
LOC: SED 19:02
DX: F41.9 Anxiety disorder, unspecified (principal); N39.0 Urinary tract infection, site not specified; J45.909 Unspecified asthma, uncomplicated
CPT/HCPCS: 36415; 80053; 81000; 81025; 85025; 96361; 96374; 96375; 99284; J1200; J2405; J7030

== ENCOUNTER 2017-01-14 09:08 | Emergency (ER) | payer MEDICAID ==
[~2017-01-14] VITALS: Ht 152.4 cm; Wt 53.1 kg
[2017-01-14 09:08] VITALS: BP_SYST 129
[2017-01-14 09:39] LABS: BILIRUBIN,URINE NEGATIVE (NEGATIVE); BLOOD, URINE 1+ (NEGATIVE); CLARITY/URINE SL CLOUDY (CLEAR); COLOR,URINE YELLOW (YELLOW); GLUCOSE,URINE NEGATIVE (NEGATIVE); KETONES,URINE NEGATIVE (NEGATIVE); LEUKOCYTE ESTERASE ,URINE NEGATIVE (NEGATIVE); NITRITE, URINE NEGATIVE (NEGATIVE); PH,URINE 7.5 (5.0-8.0); PROTEIN URINE NEGATIVE (NEGATIVE); UROBILINOGEN,URINE 0.2 (0.2-1.0)
[2017-01-14] MEDS ORDERED: NACL 0.9% 1,000 ML IV ONE (09:45)
[2017-01-14] MEDS ORDERED: DIPHENHYDRAMINE INJ 50 MG/ML VIAL IVP ONE (09:45)
[2017-01-14] MEDS ORDERED: PROCHLORPERAZINE EDISYLATE 10 MG/2 ML VIAL IVP ONE (09:45)
[2017-01-14 09:47] LABS: BACTERIA,URINE MODERATE /HPF (None Seen); MUCUS,URINE 1+ /LPF (None Seen); WBC,URINE 0-3 /HPF (0-3)
[2017-01-14 11:19] VITALS: BP_SYST 125
== END 2017-01-14 11:19 | disposition home or self-care (01) ==
LOC: SED 09:08
DX: R51 Headache (principal); R11.2 Nausea with vomiting, unspecified; F41.9 Anxiety disorder, unspecified; J45.909 Unspecified asthma, uncomplicated; Z90.89 Acquired absence of other organs
CPT/HCPCS: 81000; 81025; 87086; 96361; 96374; 96375; 99284; J0780; J1200; J7030

== ENCOUNTER 2017-02-05 08:03 | Emergency (ER) | payer MEDICAID ==
[2016-05-22 16:06] VITALS: Ht 152.4 cm; Wt 56.7 kg
[~2017-02-05] VITALS: Ht 152.4 cm; Wt 56.7 kg
[~2017-02-05 08:03] MED LIST changes: +LORA-259 PO; +PRO40 PO
[2017-02-05 08:15] VITALS: BP 133/63; PULSE 95; RESP 20; TEMP 97.1; O2SAT 100
[2017-02-05] MEDS ORDERED: NACL 0.9% 1,000 ML IV ONE ×2 (08:27→10:30)
[2017-02-05] MEDS ORDERED: PANTOPRAZOLE SODIUM 40 MG/VIAL (PROTONIX) IVP ONE (08:30)
[2017-02-05] MEDS ORDERED: ONDANSETRON HCL 4 MG/2 ML VIAL IVP ONE ×2 (08:30→09:30)
[2017-02-05 08:40] LABS: BILIRUBIN,URINE NEGATIVE (NEGATIVE); BLOOD, URINE NEGATIVE (NEGATIVE); CLARITY/URINE CLEAR (CLEAR); COLOR,URINE YELLOW (YELLOW); GLUCOSE,URINE NEGATIVE (NEGATIVE); KETONES,URINE NEGATIVE (NEGATIVE); LEUKOCYTE ESTERASE ,URINE 2+ (NEGATIVE); NITRITE, URINE NEGATIVE (NEGATIVE); PROTEIN URINE NEGATIVE (NEGATIVE); UROBILINOGEN,URINE 0.2 (0.2-1.0)
[2017-02-05 08:49] LABS: BACTERIA,URINE FEW /HPF (None Seen); MUCUS,URINE 1+ /LPF (None Seen); RBC,URINE 0-3 /HPF (0-3)
[2017-02-05 09:11] LABS: BASOPHILS # (AUTO) 0.1 K/uL (0.0-0.2); BASOPHILS % (AUTO) 1.8 % (0.0-2.0); EOSINOPHILS # (AUTO) 0.3 K/uL (0.0-0.4); EOSINOPHILS % (AUTO) 3.9 % (0.0-4.0); HEMATOCRIT 45.7 % (36-48); HEMOGLOBIN 15.2 g/dL (12.0-16.0); LYMPHOCYTES # (AUTO) 1.2 K/uL (1.0-5.5); LYMPHOCYTES % (AUTO) 15.2 % (20.5-51.5); MEAN CORPUSCULAR HEMOGLOBIN 28 pg (27-31); MEAN CORPUSCULAR HGB CONC 33 % (32-36); MEAN CORPUSCULAR VOLUME 83 fL (79.0-98.0); MONOCYTES # (AUTO) 0.4 K/uL (0.0-1.0); NEUTROPHILS # (AUTO) 6.1 K/uL (1.8-7.7); NEUTROPHILS % (AUTO) 74.1 % (40.0-70.0); PLATELET COUNT (AUTO) 283 K/uL (130-430); RED BLOOD CELL COUNT(AUTO) 5.51 MIL/uL (4.2-6.2); RED CELL DISTRIBUTION WIDTH 12.9 % (9.0-15.0); WHITE BLOOD COUNT (AUTO) 8.1 K/uL (4.8-10.8)
[2017-02-05] MEDS ORDERED: cefTRIAXone 1 GM in D5W 50 ML IV ONE (09:30)
[2017-02-05] MEDS ORDERED: cefTRIAXone 1 GM VIAL ONE (09:43)
[2017-02-05 09:58] LABS: POTASSIUM 3.6 mmol/L (3.5-5.1)
[2017-02-05 09:59] LABS: CALCIUM 8.8 mg/dL (8.4-11.0); CREATININE 0.6 mg/dL (0.55-1.30)
[2017-02-05 10:03] LABS: ALBUMIN 3.6 g/dL (3.4-4.8); TOTAL BILIRUBIN 0.3 mg/dL (0.0-1.0)
[2017-02-05] MEDS ORDERED: METOCLOPRAMIDE HCL 10 MG/2 ML VIAL IVP ONE (10:45)
[2017-02-05 11:19] LABS: BARBITURATE, URINE NEGATIVE (NEG <=200); BENZODIAZEPINE, URINE NEGATIVE (NEG <=150); CANNABINOID, URINE POSITIVE (NEG <=50); COCAINE, URINE NEGATIVE (NEG <=150); METHAMPHETAMINES SCREEN,URINE NEGATIVE (NEG <=500); OPIATE, URINE NEGATIVE (NEG <=100); PHENCYCLIDINE SCREEN,URINE NEGATIVE (NEG <=25); UR TRICYCLIC ANTIDEPRESSANTS NEGATIVE (NEG <=300); URINE AMPHETAMINE NEGATIVE (NEG <=500); URINE METHADONE NEGATIVE (NEG <=200); URINE OXYCODONE SCREEN NEGATIVE (NEG <=100); URINE PROPOXYPHENE SCREEN NEGATIVE (NEG <=300)
[2017-02-05 11:40] VITALS: BP 136/65; PULSE 96; RESP 20; TEMP 97.1; O2SAT 100
[2017-02-05] MEDS ORDERED: MONT10TA25 PO (19:44)
[2017-02-05] MEDS ORDERED: birth control pill (19:44)
== END 2017-02-05 11:40 | disposition home or self-care (01) ==
LOC: SED 08:03
DX: A41.9 Sepsis, unspecified organism (principal); R11.10 Vomiting, unspecified; N39.0 Urinary tract infection, site not specified
CPT/HCPCS: 36415; 80053; 80307; 81000; 81025; 82150; 83605; 83690; 84145; 85025; 87040; 87086; 96361; 96365; 96375; 99284; C9113; J0696; J2405; J2765; J7030; J7060

== ENCOUNTER 2017-02-05 17:11 | Inpatient (IN) | payer MEDICAID ==
[~2017-02-05] VITALS: Ht 152.4 cm; Wt 64.4 kg
[~2017-02-05 17:11] MED LIST changes: -LORA-259 PO; -PRO40 PO
[2017-02-05 17:23] VITALS: BP_SYST 134
[2017-02-05] MEDS ORDERED: ONDANSETRON 4 MG ODT TAB PO ONE (17:45)
[2017-02-05] MEDS ORDERED: HALOPERIDOL LACTATE 5 MG/ML VIAL IVP ONE (19:00)
[2017-02-05] MEDS ORDERED: NACL 0.9% 1,000 ML IV ONE ×2 (19:00→19:15)
[2017-02-05] MEDS ORDERED: DIPHENHYDRAMINE INJ 50 MG/ML VIAL IVP ONE (19:00)
[2017-02-05] MEDS ORDERED: LORazepam 2 MG/ML VIAL (FOR ER USE) IVP ONE (19:15)
[2017-02-05] MEDS ORDERED: PANTOPRAZOLE SODIUM 40 MG/VIAL (PROTONIX) IVP ONE (19:15)
[2017-02-05] MEDS ORDERED: birth control pill (19:44)
[2017-02-05] MEDS ORDERED: MONT10TA25 PO (19:44)
[2017-02-05] MEDS ORDERED: METOCLOPRAMIDE HCL 10 MG/2 ML VIAL IVP PRN (19:45)
[2017-02-05] MEDS ORDERED: ONDANSETRON HCL 4 MG/2 ML VIAL IVP PRN (19:45)
[2017-02-05 19:50] LABS: BASOPHILS # (AUTO) 0.1 K/uL (0.0-0.2); BASOPHILS % (AUTO) 0.4 % (0.0-2.0); HEMATOCRIT 40.2 % (36-48); HEMOGLOBIN 13.6 g/dL (12.0-16.0); LYMPHOCYTES # (AUTO) 0.6 K/uL (1.0-5.5); MEAN CORPUSCULAR HEMOGLOBIN 28 pg (27-31); MEAN CORPUSCULAR HGB CONC 34 % (32-36); MEAN CORPUSCULAR VOLUME 84 fL (79.0-98.0); MONOCYTES # (AUTO) 0.3 K/uL (0.0-1.0); MONOCYTES % (AUTO) 1.7 % (1.7-9.3); NEUTROPHILS # (AUTO) 14.2 K/uL (1.8-7.7); NEUTROPHILS % (AUTO) 93.9 % (40.0-70.0); PLATELET COUNT (AUTO) 271 K/uL (130-430); RED BLOOD CELL COUNT(AUTO) 4.79 MIL/uL (4.2-6.2); RED CELL DISTRIBUTION WIDTH 12.9 % (9.0-15.0); WHITE BLOOD COUNT (AUTO) 15.2 K/uL (4.8-10.8)
[2017-02-05 20:07] LABS: CALCIUM 8.3 mg/dL (8.4-11.0); CREATININE 0.68 mg/dL (0.55-1.30)
[2017-02-05 20:17] LABS: POTASSIUM 2.6 mmol/L (3.5-5.1)
[2017-02-05 20:20] LABS: ALBUMIN 3.5 g/dL (3.4-4.8); TOTAL BILIRUBIN 0.4 mg/dL (0.0-1.0)
[2017-02-05 20:43] VITALS: BP_SYST 99
[2017-02-05] MEDS: PANTOPRAZOLE SODIUM 40 MG/VIAL (PROTONIX) IVP SCH (21:00)
[2017-02-05] MEDS ORDERED: POTASSIUM CHLORIDE 40 MEQ in NS 250 ML IV ONE (22:00)
[2017-02-05] MEDS ORDERED: LORazepam 2 MG/ML VIAL IVP PRN (22:00)
[2017-02-05] MEDS ORDERED: KCL 40 mEq in 100 mL (PREMIX) 100 ML IV ONE (23:02)
[2017-02-05] MEDS: D5NS 1,000 ML IV SCH (23:22)
[2017-02-05 23:44] VITALS: BP_SYST 106
[2017-02-06] MEDS: D5NS 1,000 ML IV SCH ×2 (03:02→09:52)
[2017-02-06 04:05] VITALS: BP_SYST 101
[2017-02-06 06:17] LABS: BASOPHILS % (AUTO) 0.3 % (0.0-2.0); EOSINOPHILS # (AUTO) 0.1 K/uL (0.0-0.4); EOSINOPHILS % (AUTO) 0.8 % (0.0-4.0); HEMATOCRIT 34.5 % (36-48); HEMOGLOBIN 11.7 g/dL (12.0-16.0); LYMPHOCYTES # (AUTO) 1.5 K/uL (1.0-5.5); MEAN CORPUSCULAR HEMOGLOBIN 29 pg (27-31); MEAN CORPUSCULAR HGB CONC 34 % (32-36); MEAN CORPUSCULAR VOLUME 85 fL (79.0-98.0); MONOCYTES # (AUTO) 0.8 K/uL (0.0-1.0); NEUTROPHILS # (AUTO) 9.4 K/uL (1.8-7.7); NEUTROPHILS % (AUTO) 78.9 % (40.0-70.0); PLATELET COUNT (AUTO) 231 K/uL (130-430); RED BLOOD CELL COUNT(AUTO) 4.08 MIL/uL (4.2-6.2); RED CELL DISTRIBUTION WIDTH 13.2 % (9.0-15.0); WHITE BLOOD COUNT (AUTO) 11.8 K/uL (4.8-10.8)
[2017-02-06 06:26] LABS: ALBUMIN 2.9 g/dL (3.4-4.8); CALCIUM 7.1 mg/dL (8.4-11.0); CREATININE 0.53 mg/dL (0.55-1.30); POTASSIUM 3.3 mmol/L (3.5-5.1); TOTAL BILIRUBIN 0.3 mg/dL (0.0-1.0)
[2017-02-06 07:30] VITALS: BP_SYST 97
[2017-02-06] MEDS ORDERED: POTASSIUM CHLORIDE 40 MEQ, LIDOCAINE JECT 2% PF 100 MG 75 MG in NS 250 ML IV ONE (09:30)
[2017-02-06] MEDS: PANTOPRAZOLE SODIUM 40 MG/VIAL (PROTONIX) IVP SCH (09:52)
[2017-02-06] MEDS ORDERED: cefTRIAXone 1 GM IVPB PREMIX 50 ML IV ONE (10:30)
[2017-02-06 12:08] VITALS: BP_SYST 114
[2017-02-06 12:52] VITALS: BP_SYST 114
[2017-02-06] MEDS ORDERED: MONTELUKAST 10 MG TABLET PO SCH (18:00)
== END 2017-02-06 14:01 | disposition home or self-care (01) | DRG 720 ==
LOC: SED 17:11 → STU 19:38
PROVIDERS: ADMIT Internal Medicine Hospice and Palliative Medicine; ATTEND Internal Medicine Hospice and Palliative Medicine
DX: A41.9 Sepsis, unspecified organism (principal); E83.51 Hypocalcemia; N39.0 Urinary tract infection, site not specified; F12.90 Cannabis use, unspecified, uncomplicated; R11.2 Nausea with vomiting, unspecified; Y92.89 Other specified places as the place of occurrence of the external cause
CPT/HCPCS: 36415; 80053; 82150-TC; 83605; 83690-TC; 84702-TC; 85025; 87040-TC; 99285; C9113; J0696; J1200; J1630; J2060; J2405; J3480; J7030; J7042; J7050; Q0162

== ENCOUNTER 2017-03-08 03:58 | Emergency (ER) | payer MEDICAID ==
[~2017-03-08] VITALS: Ht 152.4 cm; Wt 56.7 kg
[~2017-03-08 03:58] MED LIST changes: +MONT10TA25 PO; +birth control pill
[2017-03-08 04:12] VITALS: BP_SYST 144
[2017-03-08] MEDS ORDERED: LevALBUTEROL HCL 1.25 MG/0.5 ML *CONC.* VIAL.NEB (XOPENEX CONC.) INH ONE (05:00)
[2017-03-08] MEDS ORDERED: ONDANSETRON 4 MG ODT TAB PO ONE (05:00)
[2017-03-08] MEDS ORDERED: DIPHENHYDRAMINE INJ 50 MG/ML VIAL IM ONE (05:30)
[2017-03-08] MEDS ORDERED: METOCLOPRAMIDE HCL 10 MG/2 ML VIAL IM ONE (05:30)
[2017-03-08 06:39] VITALS: BP_SYST 135
== END 2017-03-08 06:39 | disposition home or self-care (01) ==
LOC: SED 03:58
DX: J45.901 Unspecified asthma with (acute) exacerbation (principal); F41.9 Anxiety disorder, unspecified; Z90.89 Acquired absence of other organs
CPT/HCPCS: 94640; 96372; 99284; J1200; J2765; Q0162

== ENCOUNTER 2017-08-18 06:15 | Inpatient (IN) | payer MEDICAID ==
[~2017-08-18] VITALS: Ht 152.4 cm; Wt 63.5 kg
[~2017-08-18 06:15] MED LIST changes: +ALBMDI INH; +CEPH-568 PO; -ONDA4TAB5 PO
[2017-08-18 06:20] VITALS: BP_SYST 120
[2017-08-18] MEDS ORDERED: NACL 0.9% 1,000 ML IV ONE (06:30)
[2017-08-18] MEDS ORDERED: ONDANSETRON HCL 4 MG/2 ML VIAL IVP ONE (06:30)
[2017-08-18 07:10] LABS: BARBITURATE, URINE NEGATIVE (NEG <=200); BENZODIAZEPINE, URINE NEGATIVE (NEG <=150); CANNABINOID, URINE POSITIVE (NEG <=50); COCAINE, URINE NEGATIVE (NEG <=150); METHAMPHETAMINES SCREEN,URINE NEGATIVE (NEG <=500); OPIATE, URINE NEGATIVE (NEG <=100); PHENCYCLIDINE SCREEN,URINE NEGATIVE (NEG <=25); UR TRICYCLIC ANTIDEPRESSANTS NEGATIVE (NEG <=300); URINE AMPHETAMINE NEGATIVE (NEG <=500); URINE METHADONE NEGATIVE (NEG <=200); URINE OXYCODONE SCREEN NEGATIVE (NEG <=100); URINE PROPOXYPHENE SCREEN NEGATIVE (NEG <=300)
[2017-08-18 07:14] LABS: BASOPHILS # (AUTO) 0.1 K/uL (0.0-0.2); BASOPHILS % (AUTO) 0.7 % (0.0-2.0); EOSINOPHILS # (AUTO) 0.3 K/uL (0.0-0.4); EOSINOPHILS % (AUTO) 4.1 % (0.0-4.0); HEMOGLOBIN 14.5 g/dL (12.0-16.0); LYMPHOCYTES # (AUTO) 2.3 K/uL (1.0-5.5); LYMPHOCYTES % (AUTO) 26.8 % (20.5-51.5); MEAN CORPUSCULAR HEMOGLOBIN 27 pg (27-31); MEAN CORPUSCULAR HGB CONC 33 % (32-36); MEAN CORPUSCULAR VOLUME 82 fL (79.0-98.0); MONOCYTES # (AUTO) 0.5 K/uL (0.0-1.0); MONOCYTES % (AUTO) 5.9 % (1.7-9.3); NEUTROPHILS # (AUTO) 5.3 K/uL (1.8-7.7); NEUTROPHILS % (AUTO) 62.5 % (40.0-70.0); PLATELET COUNT (AUTO) 348 K/uL (130-430); RED BLOOD CELL COUNT(AUTO) 5.35 MIL/uL (4.2-6.2); RED CELL DISTRIBUTION WIDTH 12.2 % (9.0-15.0); WHITE BLOOD COUNT (AUTO) 8.5 K/uL (4.8-10.8)
[2017-08-18 07:26] LABS: ANION GAP 16 (5-15); CALCIUM 9.2 mg/dL (8.4-11.0); CHLORIDE 105 mmol/L (98-107); CREATININE 0.59 mg/dL (0.55-1.30); GLUCOSE 140 mg/dL (70-99); POTASSIUM 3.2 mmol/L (3.5-5.1); SODIUM SERUM 136 mmol/L (136-145); UREA NITROGEN, BLOOD 10 mg/dL (8-21)
[2017-08-18 07:28] LABS: GFR AFRICAN AMERICAN 160 mL/min (>90)
[2017-08-18] MEDS ORDERED: PROMETHAZINE HCL 25 MG/ML AMP IVP ONE (07:30)
[2017-08-18 07:31] LABS: ALANINE AMINOTRANSFERASE 27 U/L (12-78); ASPARTATE AMINOTRANSFERASE 18 U/L (10-37); TOTAL BILIRUBIN 0.5 mg/dL (0.0-1.0)
[2017-08-18 07:32] LABS: ALCOHOL, BLOOD < 3 mg/dL (<10); LIPASE 103 U/L (73-393)
[2017-08-18 07:36] LABS: ACETAMINOPHEN < 1 ug/mL (1-30)
[2017-08-18] MEDS ORDERED: KCL 10 mEq in 50 mL (PREMIX) 50 ML IV ONE (08:15)
[2017-08-18] MEDS ORDERED: LORazepam 2 MG/ML VIAL (FOR ER USE) IVP ONE (09:00)
[2017-08-18 09:46] VITALS: BP_SYST 149
[2017-08-18 09:58] VITALS: BP_SYST 149
[2017-08-18] MEDS: ONDANSETRON HCL 4 MG/2 ML VIAL IVP PRN ×2 (10:32→17:20)
[2017-08-18] MEDS: D5NS 1,000 ML IV SCH ×2 (10:32→18:16)
[2017-08-18] MEDS: METOCLOPRAMIDE HCL 10 MG/2 ML VIAL IVP PRN ×2 (11:50→23:53)
[2017-08-18] MEDS: LORazepam 2 MG/ML VIAL IVP PRN ×2 (11:51→17:27)
[2017-08-18 16:28] VITALS: BP_SYST 126
[2017-08-18 19:05] VITALS: BP_SYST 109
[2017-08-18] MEDS: MORPHINE 4 MG/ML INJ. SYRINGE IVP PRN (23:54)
[2017-08-18 23:57] VITALS: BP_SYST 135
[2017-08-19] MEDS: D5NS 1,000 ML IV SCH ×3 (02:12→22:35)
[2017-08-19] MEDS: ONDANSETRON HCL 4 MG/2 ML VIAL IVP PRN ×3 (04:26→19:53)
[2017-08-19] MEDS: MORPHINE 4 MG/ML INJ. SYRINGE IVP PRN ×4 (04:27→22:52)
[2017-08-19 08:00] VITALS: BP_SYST 123
[2017-08-19 08:11] LABS: BASOPHILS # (AUTO) 0.1 K/uL (0.0-0.2); BASOPHILS % (AUTO) 1.1 % (0.0-2.0); EOSINOPHILS # (AUTO) 0.1 K/uL (0.0-0.4); EOSINOPHILS % (AUTO) 0.7 % (0.0-4.0); HEMOGLOBIN 13.9 g/dL (12.0-16.0); LYMPHOCYTES # (AUTO) 1.6 K/uL (1.0-5.5); LYMPHOCYTES % (AUTO) 16.5 % (20.5-51.5); MEAN CORPUSCULAR HEMOGLOBIN 28 pg (27-31); MEAN CORPUSCULAR HGB CONC 34 % (32-36); MEAN CORPUSCULAR VOLUME 83 fL (79.0-98.0); MONOCYTES # (AUTO) 0.5 K/uL (0.0-1.0); MONOCYTES % (AUTO) 5.1 % (1.7-9.3); NEUTROPHILS # (AUTO) 7.5 K/uL (1.8-7.7); NEUTROPHILS % (AUTO) 76.6 % (40.0-70.0); PLATELET COUNT (AUTO) 326 K/uL (130-430); RED BLOOD CELL COUNT(AUTO) 4.96 MIL/uL (4.2-6.2); RED CELL DISTRIBUTION WIDTH 12.5 % (9.0-15.0); WHITE BLOOD COUNT (AUTO) 9.8 K/uL (4.8-10.8)
[2017-08-19 08:18] LABS: CALCIUM 8.6 mg/dL (8.4-11.0); CREATININE 0.59 mg/dL (0.55-1.30); POTASSIUM 3.5 mmol/L (3.5-5.1)
[2017-08-19 08:23] LABS: ALBUMIN 3.4 g/dL (3.4-4.8); TOTAL BILIRUBIN 0.4 mg/dL (0.0-1.0)
[2017-08-19 12:00] VITALS: BP_SYST 129
[2017-08-19] MEDS: METOCLOPRAMIDE HCL 10 MG/2 ML VIAL IVP PRN ×2 (13:50→22:51)
[2017-08-19] MEDS: LORazepam 2 MG/ML VIAL IVP PRN (14:02)
[2017-08-19 16:00] VITALS: BP_SYST 145
[2017-08-19 19:05] VITALS: BP_SYST 128
[2017-08-20 00:18] VITALS: BP_SYST 111
[2017-08-20] MEDS: LORazepam 2 MG/ML VIAL IVP PRN ×2 (02:24→02:30)
[2017-08-20] MEDS: ONDANSETRON HCL 4 MG/2 ML VIAL IVP PRN ×4 (02:24→13:42)
[2017-08-20] MEDS: MORPHINE 4 MG/ML INJ. SYRINGE IVP PRN (06:29)
[2017-08-20] MEDS: D5NS 1,000 ML IV SCH (06:30)
[2017-08-20 08:00] VITALS: BP_SYST 119
[2017-08-20] MEDS: METOCLOPRAMIDE HCL 10 MG/2 ML VIAL IVP PRN (08:45)
[2017-08-20] MEDS ORDERED: FAMOTIDINE 20 MG TABLET PO SCH (09:00)
[2017-08-20 09:30] LABS: ALBUMIN 3.7 g/dL (3.4-4.8); CALCIUM 8.8 mg/dL (8.4-11.0); CREATININE 0.62 mg/dL (0.55-1.30); POTASSIUM 3.2 mmol/L (3.5-5.1); TOTAL BILIRUBIN 0.5 mg/dL (0.0-1.0)
[2017-08-20] MEDS ORDERED: LORA-259 PO (09:40)
[2017-08-20] MEDS ORDERED: ONDA4TAB5 PO (09:41)
[2017-08-20] MEDS ORDERED: FAMO20TA8 PO (09:42)
[2017-08-20] MEDS ORDERED: POTASSIUM CHLORIDE 40 MEQ, LIDOCAINE JECT 2% PF 100 MG 50 MG in NS 250 ML IV ONE (10:30)
[2017-08-20 13:12] VITALS: BP_SYST 119
== END 2017-08-20 15:50 | disposition home or self-care (01) | DRG 812 ==
LOC: SED 06:15 → SMU 09:21
PROVIDERS: ADMIT Internal Medicine Hospice and Palliative Medicine; ATTEND Internal Medicine Hospice and Palliative Medicine
DX: T40.7X1A Poisoning by cannabis (derivatives), accidental (unintentional), initial encounter (principal); F03.90 Unspecified dementia, unspecified severity, without behavioral disturbance, psychotic disturbance, mood disturbance, and anxiety; F41.9 Anxiety disorder, unspecified; J45.909 Unspecified asthma, uncomplicated; I10 Essential (primary) hypertension; K21.9 Gastro-esophageal reflux disease without esophagitis; R19.7 Diarrhea, unspecified; E11.9 Type 2 diabetes mellitus without complications; T40.7X5A Adverse effect of cannabis (derivatives), initial encounter; Y92.89 Other specified places as the place of occurrence of the external cause; Z90.49 Acquired absence of other specified parts of digestive tract; Z86.73 Personal history of transient ischemic attack (TIA), and cerebral infarction without residual deficits; Z95.0 Presence of cardiac pacemaker
CPT/HCPCS: 36415; 80053; 80307; 83690-TC; 85025; 87081; 93005; 96361; 96365; 96375; 99285; G0480; G0481; G0482; J2060; J2270; J2405; J2550; J2765; J3480; J7030; J7042; J7050

== ENCOUNTER 2017-08-23 16:39 | Emergency (ER) | payer MEDICAID ==
[~2017-08-23] VITALS: Ht 152.4 cm; Wt 61.2 kg
[~2017-08-23 16:39] MED LIST changes: +FAMO20TA8 PO; +LORA-259 PO; +ONDA4TAB5 PO
[2017-08-23 16:43] VITALS: BP_SYST 126
[2017-08-23] MEDS ORDERED: DEXAMETHASONE SOD PHOSPHATE 10 MG/ML VIAL IM ONE (16:45)
[2017-08-23] MEDS ORDERED: ALBUTEROL SULFATE 0.083% 2.5 MG/3 ML VIAL.NEB INH ONE ×2 (16:45)
[2017-08-23 17:18] LABS: BILIRUBIN,URINE NEGATIVE (NEGATIVE); BLOOD, URINE NEGATIVE (NEGATIVE); CLARITY/URINE CLEAR (CLEAR); COLOR,URINE YELLOW (YELLOW); GLUCOSE,URINE NEGATIVE (NEGATIVE); KETONES,URINE NEGATIVE (NEGATIVE); LEUKOCYTE ESTERASE ,URINE 1+ (NEGATIVE); NITRITE, URINE NEGATIVE (NEGATIVE); PH,URINE 8.5 (5.0-8.0); PROTEIN URINE TRACE (NEGATIVE); UROBILINOGEN,URINE 0.2 (0.2-1.0)
[2017-08-23 17:23] LABS: BACTERIA,URINE MODERATE /HPF (None Seen)
[2017-08-23 17:24] LABS: MUCUS,URINE None Seen /LPF (None Seen)
[2017-08-23] MEDS ORDERED: IPRATROPIUM/ALBUTEROL SULFATE 3 ML AMPUL.NEB INH ONE (17:45)
[2017-08-23 18:09] VITALS: BP_SYST 138
[2017-08-24] MEDS ORDERED: FAMO20TA8 PO (14:12)
[2017-08-24] MEDS ORDERED: ONDA4TAB5 PO (14:12)
[2017-08-24] MEDS ORDERED: CIPR-211 PO (14:12)
== END 2017-08-23 18:09 | disposition home or self-care (01) ==
LOC: SED 16:39
DX: J45.901 Unspecified asthma with (acute) exacerbation (principal); R03.0 Elevated blood-pressure reading, without diagnosis of hypertension; N39.0 Urinary tract infection, site not specified; F12.10 Cannabis abuse, uncomplicated
CPT/HCPCS: 81000; 87086; 93005; 94640; 96372; 99285; J1100; J7030

== ENCOUNTER 2017-08-24 01:27 | Emergency (ER) | payer MEDICAID ==
[~2017-08-24] VITALS: Ht 152.4 cm; Wt 59.0 kg
[2017-08-24] MEDS ORDERED: NACL 0.9% 1,000 ML IV ONE ×2 (01:38→03:45)
[2017-08-24 01:43] VITALS: BP_SYST 142
[2017-08-24] MEDS ORDERED: MORPHINE 4 MG/ML INJ. SYRINGE IVP ONE ×2 (01:45→05:30)
[2017-08-24] MEDS ORDERED: ONDANSETRON HCL 4 MG/2 ML VIAL IVP ONE ×2 (01:45→03:45)
[2017-08-24 02:22] LABS: CALCIUM 10.3 mg/dL (8.4-11.0); CREATININE 0.66 mg/dL (0.55-1.30); POTASSIUM 3.7 mmol/L (3.5-5.1)
[2017-08-24 02:26] LABS: ALBUMIN 4.6 g/dL (3.4-4.8); TOTAL BILIRUBIN 0.6 mg/dL (0.0-1.0)
[2017-08-24 02:27] LABS: BASOPHILS # (AUTO) 0.1 K/uL (0.0-0.2); BASOPHILS % (AUTO) 0.5 % (0.0-2.0); HEMATOCRIT 49.8 % (36-48); HEMOGLOBIN 16.4 g/dL (12.0-16.0); LYMPHOCYTES # (AUTO) 0.5 K/uL (1.0-5.5); MEAN CORPUSCULAR HEMOGLOBIN 27 pg (27-31); MEAN CORPUSCULAR HGB CONC 33 % (32-36); MEAN CORPUSCULAR VOLUME 83 fL (79.0-98.0); MONOCYTES % (AUTO) 0.4 % (1.7-9.3); NEUTROPHILS % (AUTO) 95.1 % (40.0-70.0); PLATELET COUNT (AUTO) 361 K/uL (130-430); RED BLOOD CELL COUNT(AUTO) 6.01 MIL/uL (4.2-6.2); RED CELL DISTRIBUTION WIDTH 12.6 % (9.0-15.0); WHITE BLOOD COUNT (AUTO) 11.6 K/uL (4.8-10.8)
[2017-08-24 02:31] LABS: PROTHROMBIN TIME 10.6 SECS (9.5-12.5)
[2017-08-24 02:50] LABS: BILIRUBIN,URINE NEGATIVE (NEGATIVE); CLARITY/URINE SL HAZY (CLEAR); COLOR,URINE YELLOW (YELLOW); GLUCOSE,URINE TRACE (NEGATIVE); KETONES,URINE 1+ (NEGATIVE); LEUKOCYTE ESTERASE ,URINE 1+ (NEGATIVE); NITRITE, URINE NEGATIVE (NEGATIVE); PROTEIN URINE 2+ (NEGATIVE); UROBILINOGEN,URINE 0.2 (0.2-1.0)
[2017-08-24 02:55] LABS: BLOOD, URINE TRACE (NEGATIVE)
[2017-08-24 03:07] LABS: BACTERIA,URINE MODERATE /HPF (None Seen); MUCUS,URINE 1+ /LPF (None Seen)
[2017-08-24 04:28] LABS: BARBITURATE, URINE NEGATIVE (NEG <=200); BENZODIAZEPINE, URINE NEGATIVE (NEG <=150); CANNABINOID, URINE POSITIVE (NEG <=50); COCAINE, URINE NEGATIVE (NEG <=150); METHAMPHETAMINES SCREEN,URINE POSITIVE (NEG <=500); OPIATE, URINE POSITIVE (NEG <=100); PHENCYCLIDINE SCREEN,URINE NEGATIVE (NEG <=25); UR TRICYCLIC ANTIDEPRESSANTS NEGATIVE (NEG <=300); URINE AMPHETAMINE NEGATIVE (NEG <=500); URINE METHADONE NEGATIVE (NEG <=200); URINE OXYCODONE SCREEN NEGATIVE (NEG <=100); URINE PROPOXYPHENE SCREEN NEGATIVE (NEG <=300)
[2017-08-24] MEDS ORDERED: DIPHENHYDRAMINE INJ 50 MG/ML VIAL IVP ONE (05:30)
[2017-08-24 07:24] VITALS: BP_SYST 123
[2017-08-24] MEDS ORDERED: ONDA4TAB5 PO (14:12)
[2017-08-24] MEDS ORDERED: CIPR-211 PO (14:12)
[2017-08-24] MEDS ORDERED: FAMO20TA8 PO (14:12)
== END 2017-08-24 07:24 | disposition home or self-care (01) ==
LOC: SED 01:27
DX: K52.9 Noninfective gastroenteritis and colitis, unspecified (principal); J45.909 Unspecified asthma, uncomplicated; F41.9 Anxiety disorder, unspecified; R03.0 Elevated blood-pressure reading, without diagnosis of hypertension; Z79.899 Other long term (current) drug therapy
CPT/HCPCS: 36415; 80053; 80307; 81000; 83690; 85025; 85610; 85730; 87086; 96361; 96374; 96375; 96376; 99284; J1200; J2270; J2405; J7030

== ENCOUNTER 2017-08-24 12:37 | Inpatient (IN) | payer MEDICAID ==
[~2017-08-24] VITALS: Ht 152.4 cm; Wt 61.2 kg
[2017-08-24 12:42] VITALS: BP_SYST 157
[2017-08-24] MEDS ORDERED: NACL 0.9% 1,000 ML IV ONE (13:00)
[2017-08-24] MEDS ORDERED: ONDANSETRON HCL 4 MG/2 ML VIAL IVP ONE ×2 (13:15→15:15)
[2017-08-24 13:33] LABS: CALCIUM 9.6 mg/dL (8.4-11.0); CREATININE 0.61 mg/dL (0.55-1.30); POTASSIUM 3.9 mmol/L (3.5-5.1)
[2017-08-24 13:38] LABS: ALBUMIN 4.3 g/dL (3.4-4.8); TOTAL BILIRUBIN 0.6 mg/dL (0.0-1.0)
[2017-08-24] MEDS ORDERED: DIPHENHYDRAMINE INJ 50 MG/ML VIAL IVP ONE (14:00)
[2017-08-24] MEDS ORDERED: KETOROLAC TROMETHAMINE 30 MG VIAL IVP ONE (14:00)
[2017-08-24] MEDS ORDERED: CIPR-211 PO (14:12)
[2017-08-24] MEDS ORDERED: ONDA4TAB5 PO (14:12)
[2017-08-24] MEDS ORDERED: FAMO20TA8 PO (14:12)
[2017-08-24 15:00] VITALS: BP_SYST 125
[2017-08-24] MEDS ORDERED: ONDANSETRON HCL 4 MG/2 ML VIAL IVP PRN (17:00)
[2017-08-24] MEDS ORDERED: ACETAMINOPHEN 650 MG SUPP.RECT RC PRN (17:00)
[2017-08-24] MEDS ORDERED: LORazepam 2 MG/ML VIAL IM PRN (17:00)
[2017-08-24] MEDS ORDERED: IPRATROPIUM/ALBUTEROL SULFATE 3 ML AMPUL.NEB INH PRN (17:15)
[2017-08-24 17:18] VITALS: BP_SYST 125
[2017-08-24] MEDS ORDERED: PANTOPRAZOLE SODIUM 40 MG/VIAL (PROTONIX) IVP ONE (17:30)
[2017-08-24] MEDS: MORPHINE 4 MG/ML INJ. SYRINGE IVP PRN ×2 (17:43→21:46)
[2017-08-24] MEDS ORDERED: LORazepam 2 MG/ML VIAL IVP PRN (18:30)
[2017-08-24] MEDS: KCL 20 mEq in NS 1000 mL 1,000 ML IV SCH (18:48)
[2017-08-24 19:31] LABS: BILIRUBIN,URINE NEGATIVE (NEGATIVE); BLOOD, URINE NEGATIVE (NEGATIVE); CLARITY/URINE CLOUDY (CLEAR); COLOR,URINE YELLOW (YELLOW); GLUCOSE,URINE NEGATIVE (NEGATIVE); KETONES,URINE 2+ (NEGATIVE); LEUKOCYTE ESTERASE ,URINE NEGATIVE (NEGATIVE); NITRITE, URINE NEGATIVE (NEGATIVE); PH,URINE 8.5 (5.0-8.0); PROTEIN URINE 2+ (NEGATIVE); UROBILINOGEN,URINE 0.2 (0.2-1.0)
[2017-08-24 19:54] LABS: RBC,URINE 0-3 /HPF (0-3); WBC,URINE 0-3 /HPF (0-3)
[2017-08-24 19:55] LABS: BACTERIA,URINE FEW /HPF (None Seen); MUCUS,URINE 1+ /LPF (None Seen); URINE AMORPHOUS PHOSPHATES 4+ /HPF (None Seen)
[2017-08-24 20:35] VITALS: BP_SYST 121
[2017-08-24] MEDS: METOCLOPRAMIDE HCL 10 MG/2 ML VIAL IVP PRN (21:16)
[2017-08-25 00:23] VITALS: BP_SYST 108
[2017-08-25] MEDS: KCL 20 mEq in NS 1000 mL 1,000 ML IV SCH ×2 (05:33→12:06)
[2017-08-25] MEDS: METOCLOPRAMIDE HCL 10 MG/2 ML VIAL IVP PRN (06:45)
[2017-08-25 07:25] LABS: BASOPHILS % (AUTO) 0.4 % (0.0-2.0); EOSINOPHILS # (AUTO) 0.3 K/uL (0.0-0.4); EOSINOPHILS % (AUTO) 3.1 % (0.0-4.0); HEMATOCRIT 39.6 % (36-48); HEMOGLOBIN 13.6 g/dL (12.0-16.0); LYMPHOCYTES # (AUTO) 1.4 K/uL (1.0-5.5); LYMPHOCYTES % (AUTO) 16.4 % (20.5-51.5); MEAN CORPUSCULAR HEMOGLOBIN 28 pg (27-31); MEAN CORPUSCULAR HGB CONC 34 % (32-36); MEAN CORPUSCULAR VOLUME 83 fL (79.0-98.0); MONOCYTES # (AUTO) 0.8 K/uL (0.0-1.0); MONOCYTES % (AUTO) 9.2 % (1.7-9.3); NEUTROPHILS # (AUTO) 6.1 K/uL (1.8-7.7); NEUTROPHILS % (AUTO) 70.9 % (40.0-70.0); PLATELET COUNT (AUTO) 275 K/uL (130-430); RED CELL DISTRIBUTION WIDTH 12.8 % (9.0-15.0); WHITE BLOOD COUNT (AUTO) 8.6 K/uL (4.8-10.8)
[2017-08-25 07:40] LABS: ALBUMIN 3.4 g/dL (3.4-4.8); CALCIUM 8.4 mg/dL (8.4-11.0); CREATININE 0.54 mg/dL (0.55-1.30); TOTAL BILIRUBIN 0.5 mg/dL (0.0-1.0)
[2017-08-25 08:35] VITALS: BP_SYST 124
[2017-08-25] MEDS ORDERED: PANTOPRAZOLE SODIUM 40 MG/VIAL (PROTONIX) IVP SCH (09:00)
[2017-08-25] MEDS: MORPHINE 4 MG/ML INJ. SYRINGE IVP PRN (12:05)
[2017-08-25 12:46] VITALS: BP_SYST 118
[2017-08-25 16:51] VITALS: BP_SYST 124
[2017-08-25 18:06] VITALS: BP_SYST 124
== END 2017-08-25 18:20 | disposition home or self-care (01) | DRG 812 ==
LOC: SED 12:37 → SMU 14:42
PROVIDERS: ADMIT Internal Medicine; ATTEND Internal Medicine
DX: T40.7X1A Poisoning by cannabis (derivatives), accidental (unintentional), initial encounter (principal); J45.901 Unspecified asthma with (acute) exacerbation; E86.0 Dehydration; F41.9 Anxiety disorder, unspecified; G43.A0 Cyclical vomiting, in migraine, not intractable; Y92.89 Other specified places as the place of occurrence of the external cause; Z87.440 Personal history of urinary (tract) infections
CPT/HCPCS: 36415; 80053; 81000-TC; 83735-TC; 85025; 87081; 94640; 96361; 96374; 96375; 99285; C9113; J1200; J1885; J2060; J2270; J2405; J2765; J3480

== ENCOUNTER 2017-12-19 11:17 | Inpatient (IN) | payer MEDICAID ==
[~2017-12-19] VITALS: Ht 152.4 cm; Wt 64.6 kg
[~2017-12-19 11:17] MED LIST changes: -CEPH-568 PO; -FAMO20TA8 PO; -OMEP20TA20 PO; -birth control pill
[2017-12-19 11:36] VITALS: BP_SYST 139
[2017-12-19] MEDS ORDERED: ONDANSETRON HCL 4 MG/2 ML VIAL IVP ONE ×2 (12:00→14:30)
[2017-12-19] MEDS ORDERED: LORazepam 2 MG/ML VIAL (FOR ER USE) IM ONE (12:00)
--- NOTE | 2017-12-19 13:25 | NUR ---
Patient to ER bed 6 to gown for evaluation. Side rails up. Report given to Dharmesh.
[2017-12-19] MEDS ORDERED: ONDANSETRON 4 MG ODT TAB ONE (13:53)
[2017-12-19 13:54] LABS: BILIRUBIN,URINE NEGATIVE (NEGATIVE); BLOOD, URINE 2+ (NEGATIVE); CLARITY/URINE CLEAR (CLEAR); COLOR,URINE YELLOW (YELLOW); GLUCOSE,URINE NEGATIVE (NEGATIVE); KETONES,URINE 1+ (NEGATIVE); LEUKOCYTE ESTERASE ,URINE 2+ (NEGATIVE); NITRITE, URINE NEGATIVE (NEGATIVE); PROTEIN URINE 1+ (NEGATIVE); UROBILINOGEN,URINE 0.2 (0.2-1.0)
[2017-12-19 14:15] LABS: BACTERIA,URINE MODERATE /HPF (None Seen); YEAST,URINE None Seen /HPF (None Seen)
[2017-12-19 14:16] LABS: MUCUS,URINE None Seen /LPF (None Seen)
[2017-12-19] MEDS ORDERED: MORPHINE SULFATE 10 MG/ML VIAL IVP ONE (14:30)
[2017-12-19] MEDS ORDERED: DIPHENHYDRAMINE INJ 50 MG/ML VIAL IVP ONE (14:30)
--- NOTE | 2017-12-19 14:50 | NUR ---
# 22 gauge angiocath placed to RIGHT HAND. Use of asceptic technique. Opsite placed over site. Blood return noted. Blood for lab drawn from site. Flushed with 10 cc of normal saline. No evidence of infiltration noted. Patient tolerated well.
--- NOTE | 2017-12-19 15:03 | NUR ---
MEDICATED WITH BENADRYL 50 MG IVP AND ZOFRAN 4 MG IVP FOR VOMITING AND BACK PAIN.
[2017-12-19 15:11] LABS: HEMATOCRIT 44.2 % (36-48); HEMOGLOBIN 15.2 g/dL (12.0-16.0); MEAN CORPUSCULAR HEMOGLOBIN 29 pg (27-31); MEAN CORPUSCULAR HGB CONC 34 % (32-36); MEAN CORPUSCULAR VOLUME 86 fL (79.0-98.0); PLATELET COUNT (AUTO) 347 K/uL (130-430); RED BLOOD CELL COUNT(AUTO) 5.17 MIL/uL (4.2-6.2); RED CELL DISTRIBUTION WIDTH 12.2 % (9.0-15.0); WHITE BLOOD COUNT (AUTO) 20.5 K/uL (4.8-10.8)
[2017-12-19 15:20] LABS: CALCIUM 9.4 mg/dL (8.4-11.0); CREATININE 0.76 mg/dL (0.55-1.30); POTASSIUM 3.5 mmol/L (3.5-5.1)
[2017-12-19 15:25] LABS: ALBUMIN 4.2 g/dL (3.4-4.8); TOTAL BILIRUBIN 0.4 mg/dL (0.0-1.0)
[2017-12-19 15:37] LABS: BAND % (MANUAL) 2 % (0-6); BASOPHILS % (MANUAL) 0 % (0-2); EOSINOPHILS % (MANUAL) 0 % (0-7); LYMPHOCYTES % (MANUAL) 6 % (20-46); MONOCYTES % (MANUAL) 1 % (0-11)
[2017-12-19] MEDS ORDERED: LEVOFLOXACIN 500 MG/D5W 100 ML IV ONE (16:30)
[2017-12-19] MEDS ORDERED: MORPHINE 2 MG/ML INJ. SYRINGE IVP PRN (17:15)
--- NOTE | 2017-12-19 18:30 | NUR ---
ADMISSION NOTE Received patient from ER via obed, received report from Tahira CHEEMA. Patient admitted with diagnosis of nausea/vomiting. Patient oriented to hospital routine, call light, toileting and safety-patient verbalized understanding.
--- NOTE | 2017-12-19 18:37 | NUR ---
spoke with patient who feels her drinking last night was not out of the normal for her and that this vomiting is a sign of something else. per report patient asked for pain meds prior to leaving ER, now states she does not have any pain.iv fluids started. given gown and blanket.
[2017-12-19] MEDS: ONDANSETRON HCL 4 MG/2 ML VIAL IVP PRN (18:51)
[2017-12-19] MEDS: D5NS 1,000 ML IV SCH (18:52)
[2017-12-19 19:00] VITALS: BP_SYST 125
[2017-12-19] MEDS: MORPHINE 4 MG/ML INJ. SYRINGE IVP PRN (19:02)
[2017-12-19 19:14] VITALS: BP_SYST 127
[2017-12-19 20:00] VITALS: BP_SYST 125
--- NOTE | 2017-12-19 20:02 | NUR ---
paged Dr. Keys for orders. spoke with Jennifer.
[2017-12-19] MEDS: LORazepam 2 MG/ML VIAL IVP PRN (20:40)
[2017-12-19] MEDS ORDERED: NACL 0.9% 1,000 ML IV ONE ×2 (23:00)
[2017-12-20] MEDS ORDERED: NACL 0.9% 1,000 ML IV ONE (00:45)
[2017-12-20] MEDS: MORPHINE 4 MG/ML INJ. SYRINGE IVP PRN (01:49)
[2017-12-20] MEDS: ONDANSETRON HCL 4 MG/2 ML VIAL IVP PRN ×2 (01:53→20:12)
[2017-12-20 02:00] VITALS: BP_SYST 108
[2017-12-20] MEDS: D5NS 1,000 ML IV SCH ×2 (06:31→12:19)
--- NOTE | 2017-12-20 06:45 | NUR ---
pt.was admitted via the er-dept.pt.presents drinking +marijuana use.pt.presented wbc level:20.5/ lactic acids;3.3 -4.5.the 2 values conveyed to . ordered septic protocol. i administered normal saline;x2 litres.v/s values w/in normal limits.pt.had requested medication anxiety. was apprised. orde4d ativan;1mg ivp.i administered the ativan:pt.presents quiescent affect;througout the shift.the am pt.requexted medication:pain/nausea;i administered morphine: 4mg ivp/zofran;4mg ivp.pt.st the medications were efficatious.pt.presents k+3.5 did not derm replacement.levaquin was administered in the er-dept.general status stable.respiratory status stable. call light/telephone w/in the pt's reach.pt.capable to reposition self.
--- NOTE | 2017-12-20 07:45 | NUR ---
OPENING NOTES, RECEIVED PT IN BED, PT IS AAOX4, DENIES PAIN, NO N/V. NO SOB, NO RESP DISTRESS. VITALS WNL. AFEBRILE. IV ACCESS ON R. HAND #24, INTACT AND PATENT, IV FLUID OF D5NS INFUSING WELL. NO S/S OF INFILTRATION. SAFETY PRECAUTION IN PLACE. BED ALARM ON. CALL LIGHT IN REACH. ENCOURAGED TO CALL FOR ASSIST AND PAIN MEDS AND ANY CONCERNS. WILL CONT TO MONITOR.
[2017-12-20 08:11] VITALS: BP_SYST 111
--- NOTE | 2017-12-20 10:17 | NUR ---
PT AMBULATED TO THE BATHROOM, NO C/O PAIN, NO N/V. WAITING FOR MD TO MAKE ROUNDS.
[2017-12-20 11:03] LABS: BASOPHILS # (AUTO) 0.1 K/uL (0.0-0.2); BASOPHILS % (AUTO) 0.8 % (0.0-2.0); EOSINOPHILS # (AUTO) 0.1 K/uL (0.0-0.4); EOSINOPHILS % (AUTO) 0.8 % (0.0-4.0); HEMATOCRIT 36.7 % (36-48); HEMOGLOBIN 12.8 g/dL (12.0-16.0); LYMPHOCYTES # (AUTO) 1.4 K/uL (1.0-5.5); LYMPHOCYTES % (AUTO) 14.9 % (20.5-51.5); MEAN CORPUSCULAR HEMOGLOBIN 29 pg (27-31); MEAN CORPUSCULAR HGB CONC 35 % (32-36); MEAN CORPUSCULAR VOLUME 84 fL (79.0-98.0); MONOCYTES # (AUTO) 0.4 K/uL (0.0-1.0); MONOCYTES % (AUTO) 4.3 % (1.7-9.3); NEUTROPHILS # (AUTO) 7.3 K/uL (1.8-7.7); NEUTROPHILS % (AUTO) 79.2 % (40.0-70.0); PLATELET COUNT (AUTO) 262 K/uL (130-430); RED BLOOD CELL COUNT(AUTO) 4.37 MIL/uL (4.2-6.2); RED CELL DISTRIBUTION WIDTH 12.4 % (9.0-15.0); WHITE BLOOD COUNT (AUTO) 9.3 K/uL (4.8-10.8)
[2017-12-20 11:05] LABS: CALCIUM 7.6 mg/dL (8.4-11.0); CREATININE 0.7 mg/dL (0.55-1.30); POTASSIUM 3.2 mmol/L (3.5-5.1)
[2017-12-20 11:10] LABS: ALBUMIN 3.2 g/dL (3.4-4.8); TOTAL BILIRUBIN 0.3 mg/dL (0.0-1.0)
[2017-12-20 11:13] VITALS: BP_SYST 99
[2017-12-20] MEDS ORDERED: POTASSIUM CHLORIDE 20 MEQ TAB.PRT.SR PO ONE (13:00)
--- NOTE | 2017-12-20 13:11 | NUR ---
PT IN BED, PROVIDED JELLO AND APPLE JUICE TO START HER ON CLEAR LIQUID ORDERED. ALSO GIVEN PO POTASSIUM FOR K-LEVEL OF 3.2.
[2017-12-20 15:40] VITALS: BP_SYST 115
--- NOTE | 2017-12-20 19:48 | NUR ---
CLOSING NOTES, PT ENDORSED TO NIGHT RN. PERLA. PT HAS BEEN STABLE , NO C/O N/V AND ABD PAIN. TOLERATING CLEAR LIQUID DIET. THIS RN SPOKE WITH DR LEE AND DOES NOT WANT TO DC PT. PT MADE AWARE.
--- NOTE | 2017-12-20 20:00 | NUR ---
DR LEE , DID CALL BACK & WILL NOT D/C PATIENT HOME patient updated & aware .
[2017-12-20] MEDS: LORazepam 2 MG/ML VIAL IVP PRN (20:12)
[2017-12-20 21:00] VITALS: BP_SYST 121
[2017-12-20] MEDS ORDERED: LEVOFLOXACIN 500 MG/D5W 100 ML IV SCH (21:00)
--- NOTE | 2017-12-21 | NUR ---
LORAZEPAM 1 MG IVP GIVEN FOR ANXIETY & HELPFUL .
[2017-12-21 00:33] VITALS: BP_SYST 93
[2017-12-21] MEDS: D5NS 1,000 ML IV SCH (03:19)
--- NOTE | 2017-12-21 03:22 | NUR ---
Hourly Rounding patient Resting on room air 02 SAT 96 % chest movement symmetrical unlabored .
--- NOTE | 2017-12-21 03:23 | NUR ---
ZOFRAN 4 MG IVP given for GI upset & helpful .
[2017-12-21] MEDS: ONDANSETRON HCL 4 MG/2 ML VIAL IVP PRN (05:58)
[2017-12-21] MEDS: LORazepam 2 MG/ML VIAL IVP PRN (05:59)
--- NOTE | 2017-12-21 06:08 | NUR ---
ATIVAN 1 MG IVP PATIENT REQUEST FOR ANXIETY , POSITION CHANGE ALSO HELPFUL .
--- NOTE | 2017-12-21 07:45 | NUR ---
INITIAL NOTE RECEIVED PATIENT FROM AGENT TELEGRAPHER. PATIENT RESTING; EASILY AROUSABLE. A/OX 4. NO ACUTE DISTRESS. NO SOB. RESPIRATION EVEN AND UNLABORED. SKIN WARM AND DRY TO TOUCH. IV INTACT AND PATENT. BED IN LOW AND LOCKED POSITION. SIDERAIL UP X3. BED ALARM ON. ORIENTED PATIENT TO CALL LIGHT AND TO USE FOR ASSIST; PT VERBALIZED UNDERSTANDING. CALL LIGHT IN REACH. CONT TO MONITOR.
--- NOTE | 2017-12-21 10:00 | NUR ---
NOTES PATIENT AWAKE IN BED. DENIES PAIN. PATIENT STATED SHE IS FEELING BETTER AND IS WAITING TO BE DISCHARGED. ALL NEEDS MET. CONT TO MONITOR.
[2017-12-21 11:19] VITALS: BP_SYST 128
--- NOTE | 2017-12-21 11:20 | NUR ---
SEEN AND EXAMINED BY AT BEDSIDE. PER PATIENT IS NOT READY TO BE DISCHARGED. PATIENT NEEDS TO ADVANCE AND ALEJANDRA REGULAR DIET BEFORE DISCHARGE. PATIENT AWARE. CONT TO MONITOR. CALL LIGHT IN REACH.
--- NOTE | 2017-12-21 12:45 | NUR ---
AMA: Patient does not wish to proceed with medical care recommended by . Patient given information related to possible complications, up to and including , which could occur as a result of leaving hospital at this time. Patient verbalizes understanding of risks involved leaving against medical advice. Patient has signed AMA form. IV removed with catheter intact, betzy well. ID band removed. Charge nurse and Security made aware.
== END 2017-12-21 12:45 | disposition left against medical advice (07) | DRG 720 ==
LOC: SED 11:17 → SMU 17:11
PROVIDERS: ADMIT Internal Medicine Hospice and Palliative Medicine; ATTEND Internal Medicine Hospice and Palliative Medicine
DX: A41.9 Sepsis, unspecified organism (principal); N39.0 Urinary tract infection, site not specified; F12.90 Cannabis use, unspecified, uncomplicated; J45.909 Unspecified asthma, uncomplicated; F41.9 Anxiety disorder, unspecified; Z90.49 Acquired absence of other specified parts of digestive tract; G43.A0 Cyclical vomiting, in migraine, not intractable
CPT/HCPCS: 36415; 80053; 81000-TC; 83605; 85007; 85025; 85027; 87040-TC; 87086; 96365; 96372; 96375; 99285; J1200; J1956; J2060; J2270; J2405; J7030; J7042; Q0162

== ENCOUNTER 2018-01-14 09:04 | Emergency (ER) | payer MEDICAID ==
[~2018-01-14] VITALS: Ht 152.4 cm; Wt 59.0 kg
[2018-01-14 09:05] VITALS: BP_SYST 117
[2018-01-14] MEDS ORDERED: NACL 0.9% 1,000 ML IV ONE ×2 (09:08→09:15)
[2018-01-14] MEDS ORDERED: ONDANSETRON HCL 4 MG/2 ML VIAL IVP ONE (09:15)
[2018-01-14] MEDS ORDERED: MORPHINE 4 MG/ML INJ. SYRINGE IVP ONE (09:15)
[2018-01-14 09:36] LABS: HEMATOCRIT 45.2 % (36-48); HEMOGLOBIN 15.9 g/dL (12.0-16.0); MEAN CORPUSCULAR HEMOGLOBIN 29 pg (27-31); MEAN CORPUSCULAR HGB CONC 35 % (32-36); MEAN CORPUSCULAR VOLUME 83 fL (79.0-98.0); PLATELET COUNT (AUTO) 286 K/uL (130-430); RED BLOOD CELL COUNT(AUTO) 5.43 MIL/uL (4.2-6.2); RED CELL DISTRIBUTION WIDTH 12.6 % (9.0-15.0)
[2018-01-14 09:50] LABS: PROTHROMBIN TIME 9.9 SECS (9.5-12.5)
[2018-01-14 10:04] LABS: BILIRUBIN,URINE NEGATIVE (NEGATIVE); CLARITY/URINE HAZY (CLEAR); COLOR,URINE YELLOW (YELLOW); GLUCOSE,URINE NEGATIVE (NEGATIVE); KETONES,URINE TRACE (NEGATIVE); LEUKOCYTE ESTERASE ,URINE 3+ (NEGATIVE); NITRITE, URINE NEGATIVE (NEGATIVE); PROTEIN URINE NEGATIVE (NEGATIVE); UROBILINOGEN,URINE 0.2 (0.2-1.0)
[2018-01-14 10:04] LABS: CALCIUM 9.5 mg/dL (8.4-11.0); CREATININE 0.67 mg/dL (0.55-1.30); POTASSIUM 3.5 mmol/L (3.5-5.1)
[2018-01-14 10:07] LABS: ALBUMIN 4.6 g/dL (3.4-4.8); TOTAL BILIRUBIN 0.5 mg/dL (0.0-1.0)
[2018-01-14 10:15] LABS: ATYPICAL LYMPHOCYTES % 3 % (0-0); BASOPHILS % (MANUAL) 0 % (0-2); EOSINOPHILS % (MANUAL) 1 % (0-7); LYMPHOCYTES % (MANUAL) 15 % (20-46); MONOCYTES % (MANUAL) 9 % (0-11)
[2018-01-14 10:22] LABS: BLOOD, URINE TRACE (NEGATIVE)
[2018-01-14 10:35] LABS: BARBITURATE, URINE NEGATIVE (NEG <=200); BENZODIAZEPINE, URINE NEGATIVE (NEG <=150); CANNABINOID, URINE POSITIVE (NEG <=50); COCAINE, URINE NEGATIVE (NEG <=150); METHAMPHETAMINES SCREEN,URINE NEGATIVE (NEG <=500); OPIATE, URINE NEGATIVE (NEG <=100); PHENCYCLIDINE SCREEN,URINE NEGATIVE (NEG <=25); UR TRICYCLIC ANTIDEPRESSANTS NEGATIVE (NEG <=300); URINE AMPHETAMINE NEGATIVE (NEG <=500); URINE METHADONE NEGATIVE (NEG <=200); URINE OXYCODONE SCREEN NEGATIVE (NEG <=100); URINE PROPOXYPHENE SCREEN NEGATIVE (NEG <=300)
[2018-01-14 10:39] LABS: BACTERIA,URINE MODERATE /HPF (None Seen); MUCUS,URINE 1+ /LPF (None Seen); RBC,URINE 0-3 /HPF (0-3); WBC,URINE 20-50 /HPF (0-3)
[2018-01-14 10:55] VITALS: BP_SYST 119
== END 2018-01-14 10:55 | disposition home or self-care (01) ==
LOC: SED 09:04
DX: N39.0 Urinary tract infection, site not specified (principal); R10.9 Unspecified abdominal pain; J45.909 Unspecified asthma, uncomplicated; F41.9 Anxiety disorder, unspecified; Z79.899 Other long term (current) drug therapy
CPT/HCPCS: 36415; 80053; 80307; 81000; 82150; 83690; 85007; 85027; 85610; 85730; 87086; 96361; 96374; 96375; 99284; G0482; J2270; J2405; J7030

== ENCOUNTER 2018-03-12 03:44 | Emergency (ER) | payer MEDICAID ==
[~2018-03-12] VITALS: Ht 154.9 cm; Wt 62.1 kg
[2018-03-12 03:55] VITALS: BP_SYST 147
[2018-03-12 04:47] LABS: BILIRUBIN,URINE NEGATIVE (NEGATIVE); BLOOD, URINE NEGATIVE (NEGATIVE); CLARITY/URINE SL HAZY (CLEAR); COLOR,URINE YELLOW (YELLOW); GLUCOSE,URINE NEGATIVE (NEGATIVE); KETONES,URINE NEGATIVE (NEGATIVE); LEUKOCYTE ESTERASE ,URINE 2+ (NEGATIVE); NITRITE, URINE NEGATIVE (NEGATIVE); PROTEIN URINE NEGATIVE (NEGATIVE); UROBILINOGEN,URINE 0.2 (0.2-1.0)
[2018-03-12] MEDS ORDERED: NACL 0.9% 1,000 ML IV ONE (05:15)
[2018-03-12] MEDS ORDERED: ONDANSETRON HCL 4 MG/2 ML VIAL IVP ONE (05:15)
[2018-03-12] MEDS ORDERED: cefTRIAXone 1 GM IVPB PREMIX 50 ML IV ONE (05:15)
[2018-03-12 05:17] LABS: BACTERIA,URINE MODERATE /HPF (None Seen); MUCUS,URINE 1+ /LPF (None Seen); RBC,URINE 0-3 /HPF (0-3); WBC,URINE 20-50 /HPF (0-3)
[2018-03-12 05:50] LABS: BASOPHILS % (AUTO) 0.3 % (0.0-2.0); EOSINOPHILS # (AUTO) 0.1 K/uL (0.0-0.4); EOSINOPHILS % (AUTO) 0.9 % (0.0-4.0); HEMATOCRIT 44.2 % (36-48); HEMOGLOBIN 14.4 g/dL (12.0-16.0); LYMPHOCYTES # (AUTO) 1.1 K/uL (1.0-5.5); LYMPHOCYTES % (AUTO) 14.9 % (20.5-51.5); MEAN CORPUSCULAR HEMOGLOBIN 27 pg (27-31); MEAN CORPUSCULAR HGB CONC 33 % (32-36); MEAN CORPUSCULAR VOLUME 84 fL (79.0-98.0); MONOCYTES # (AUTO) 0.4 K/uL (0.0-1.0); MONOCYTES % (AUTO) 5.3 % (1.7-9.3); NEUTROPHILS # (AUTO) 5.6 K/uL (1.8-7.7); NEUTROPHILS % (AUTO) 78.6 % (40.0-70.0); PLATELET COUNT (AUTO) 356 K/uL (130-430); RED BLOOD CELL COUNT(AUTO) 5.27 MIL/uL (4.2-6.2); RED CELL DISTRIBUTION WIDTH 12.3 % (9.0-15.0); WHITE BLOOD COUNT (AUTO) 7.2 K/uL (4.8-10.8)
[2018-03-12 05:51] LABS: CALCIUM 9.2 mg/dL (8.4-11.0); CREATININE 0.62 mg/dL (0.55-1.30); POTASSIUM 3.6 mmol/L (3.5-5.1)
[2018-03-12 05:56] LABS: ALBUMIN 3.9 g/dL (3.4-4.8); TOTAL BILIRUBIN 0.3 mg/dL (0.0-1.0)
[2018-03-12 07:41] VITALS: BP_SYST 126
== END 2018-03-12 07:41 | disposition home or self-care (01) ==
LOC: SED 03:44
DX: N39.0 Urinary tract infection, site not specified (principal); J45.909 Unspecified asthma, uncomplicated; F41.9 Anxiety disorder, unspecified; Z79.899 Other long term (current) drug therapy
CPT/HCPCS: 36415; 80053; 81000; 85025; 87086; 96365; 96375; 99285; J0696; J2405; J7030

== ENCOUNTER 2018-03-12 11:58 | Emergency (ER) | payer MEDICAID ==
[~2018-03-12] VITALS: Ht 154.9 cm; Wt 62.1 kg
[2018-03-12 12:00] VITALS: BP_SYST 127
[2018-03-12] MEDS ORDERED: NACL 0.9% 1,000 ML IV ONE (12:14)
[2018-03-12] MEDS ORDERED: ONDANSETRON HCL 4 MG/2 ML VIAL IVP ONE (12:15)
[2018-03-12] MEDS ORDERED: KETOROLAC TROMETHAMINE 30 MG VIAL IVP ONE (12:15)
[2018-03-12 12:49] LABS: BASOPHILS # (AUTO) 0.1 K/uL (0.0-0.2); BASOPHILS % (AUTO) 1.1 % (0.0-2.0); EOSINOPHILS % (AUTO) 0.1 % (0.0-4.0); HEMOGLOBIN 15.3 g/dL (12.0-16.0); LYMPHOCYTES # (AUTO) 0.9 K/uL (1.0-5.5); MEAN CORPUSCULAR HEMOGLOBIN 28 pg (27-31); MEAN CORPUSCULAR HGB CONC 33 % (32-36); MEAN CORPUSCULAR VOLUME 85 fL (79.0-98.0); MONOCYTES # (AUTO) 0.3 K/uL (0.0-1.0); MONOCYTES % (AUTO) 2.8 % (1.7-9.3); NEUTROPHILS # (AUTO) 8.5 K/uL (1.8-7.7); PLATELET COUNT (AUTO) 386 K/uL (130-430); RED BLOOD CELL COUNT(AUTO) 5.54 MIL/uL (4.2-6.2); RED CELL DISTRIBUTION WIDTH 12.7 % (9.0-15.0)
[2018-03-12 12:50] LABS: BILIRUBIN,URINE NEGATIVE (NEGATIVE); BLOOD, URINE NEGATIVE (NEGATIVE); COLOR,URINE YELLOW (YELLOW); GLUCOSE,URINE NEGATIVE (NEGATIVE); KETONES,URINE NEGATIVE (NEGATIVE); LEUKOCYTE ESTERASE ,URINE NEGATIVE (NEGATIVE); NITRITE, URINE NEGATIVE (NEGATIVE); PH,URINE 8.5 (5.0-8.0); PROTEIN URINE NEGATIVE (NEGATIVE); UROBILINOGEN,URINE 0.2 (0.2-1.0)
[2018-03-12 12:51] LABS: CALCIUM 9.4 mg/dL (8.4-11.0); CREATININE 0.76 mg/dL (0.55-1.30); POTASSIUM 3.4 mmol/L (3.5-5.1)
[2018-03-12 12:54] LABS: WHITE BLOOD COUNT (AUTO) 9.8 K/uL (4.8-10.8)
[2018-03-12 12:56] LABS: ALBUMIN 4.1 g/dL (3.4-4.8); TOTAL BILIRUBIN 0.3 mg/dL (0.0-1.0)
[2018-03-12 12:58] LABS: CLARITY/URINE SLIGHTLY HAZY (CLEAR)
[2018-03-12 13:03] LABS: BARBITURATE, URINE NEGATIVE (NEG <=200); BENZODIAZEPINE, URINE NEGATIVE (NEG <=150); CANNABINOID, URINE POSITIVE (NEG <=50); COCAINE, URINE NEGATIVE (NEG <=150); METHAMPHETAMINES SCREEN,URINE NEGATIVE (NEG <=500); OPIATE, URINE NEGATIVE (NEG <=100); PHENCYCLIDINE SCREEN,URINE NEGATIVE (NEG <=25); UR TRICYCLIC ANTIDEPRESSANTS NEGATIVE (NEG <=300); URINE AMPHETAMINE NEGATIVE (NEG <=500); URINE METHADONE NEGATIVE (NEG <=200); URINE OXYCODONE SCREEN NEGATIVE (NEG <=100); URINE PROPOXYPHENE SCREEN NEGATIVE (NEG <=300)
[2018-03-12] MEDS ORDERED: PROMETHAZINE HCL 25 MG/ML AMP IVP ONE ×2 (13:45→17:15)
[2018-03-12] MEDS ORDERED: KCL 40 mEq in D5W 1000 mL 1,000 ML IV ONE (14:00)
[2018-03-12 17:23] LABS: CALCIUM 8.2 mg/dL (8.4-11.0); CREATININE 0.56 mg/dL (0.55-1.30); POTASSIUM 3.7 mmol/L (3.5-5.1)
[2018-03-12 17:33] VITALS: BP_SYST 132
== END 2018-03-12 17:33 | disposition home or self-care (01) ==
LOC: SED 11:58
DX: G43.A0 Cyclical vomiting, in migraine, not intractable (principal); R11.0 Nausea; F40.10 Social phobia, unspecified; J45.909 Unspecified asthma, uncomplicated; R03.0 Elevated blood-pressure reading, without diagnosis of hypertension; Z90.89 Acquired absence of other organs; Z79.899 Other long term (current) drug therapy
CPT/HCPCS: 36415; 80048; 80053; 80307; 81003; 82150; 83690; 85025; 96361; 96365; 96375; 96376; 99285; J1885; J2405; J2550; J7030

== ENCOUNTER 2019-04-30 00:35 | Emergency (ER) | payer MEDICAID ==
[~2019-04-30] VITALS: Ht 152.4 cm; Wt 63.5 kg
[2019-04-30 00:40] VITALS: BP_SYST 139
--- NOTE | 2019-04-30 00:50 | NUR ---
Patient to ER bed 5 to gown for evaluation. Side rails up.
--- NOTE | 2019-04-30 01:07 | NUR ---
ER at bedside examining patient.
--- NOTE | 2019-04-30 01:10 | NUR ---
Pt came to [facility] ED for ABD pain, MICHELLE and vomiting. Reports she was seen at a urgent care for UTI. Currently taking Macrobid and is on day 4. Reports that urinary symptoms have not been relieved. Denies fever or chills. No other complaints/injuries noted. Will cont. to monitor.
[2019-04-30] MEDS ORDERED: DIPHENHYDRAMINE INJ 50 MG/ML VIAL IM ONE (01:15)
[2019-04-30] MEDS ORDERED: PROCHLORPERAZINE EDISYLATE 10 MG/2 ML VIAL IM ONE (01:15)
[2019-04-30 02:07] VITALS: BP_SYST 139
--- NOTE | 2019-04-30 02:07 | NUR ---
Patient given written and verbal discharge instructions and verbalizes understanding. ER MD Dr. Clinton discussed with patient the results and treatment provided. Patient in stable condition. ID arm band removed. Rx of motrin, cipro and zofran given. Patient educated on pain management and to follow up with PMD. Pain Scale 0/10. Opportunity for questions provided and answered. Medication side effect fact sheet provided.
== END 2019-04-30 02:07 | disposition home or self-care (01) ==
LOC: SED 00:35
DX: N39.0 Urinary tract infection, site not specified (principal); G43.A1 Cyclical vomiting, in migraine, intractable; R03.0 Elevated blood-pressure reading, without diagnosis of hypertension; J45.909 Unspecified asthma, uncomplicated; F41.9 Anxiety disorder, unspecified; Z79.899 Other long term (current) drug therapy
CPT/HCPCS: 81025; 96372; 99283; J0780; J1200

== ENCOUNTER 2020-03-07 08:34 | Emergency (ER) | payer MEDICAID ==
[~2020-03-07] VITALS: Ht 152.4 cm; Wt 61.2 kg
[~2020-03-07 08:34] MED LIST changes: -MONT10TA25 PO; +MONT10TA27 PO
[2020-03-07 08:39] VITALS: BP_SYST 138
[2020-03-07] MEDS ORDERED: KETOROLAC TROMETHAMINE 60 MG/2 ML VIAL IM ONE ×2 (09:00→09:30)
[2020-03-07] MEDS ORDERED: ONDANSETRON 4 MG ODT TAB PO ONE (09:00)
[2020-03-07] MEDS ORDERED: METOCLOPRAMIDE HCL 10 MG/2 ML VIAL IM ONE (09:30)
[2020-03-07 10:00] VITALS: BP_SYST 130
== END 2020-03-07 10:00 | disposition home or self-care (01) ==
LOC: SED 08:34
DX: N39.0 Urinary tract infection, site not specified (principal); G43.909 Migraine, unspecified, not intractable, without status migrainosus; J45.909 Unspecified asthma, uncomplicated; F41.9 Anxiety disorder, unspecified; R11.15 Cyclical vomiting syndrome unrelated to migraine; Z79.899 Other long term (current) drug therapy
CPT/HCPCS: 81002; 81025; 96372; 99284; J1885; J2765; Q0162

== ENCOUNTER 2020-04-04 14:37 | Emergency (ER) | payer MEDICAID ==
[~2020-04-04] VITALS: Ht 152.4 cm; Wt 65.3 kg
[2020-04-04 14:43] VITALS: BP_SYST 130
== END 2020-04-04 16:43 | disposition left against medical advice (07) ==
LOC: SED 14:37
DX: J45.909 Unspecified asthma, uncomplicated (principal); Z53.21 Procedure and treatment not carried out due to patient leaving prior to being seen by health care provider

== ENCOUNTER 2021-03-13 12:50 | Emergency (ER) | payer BC, MEDICAID, SELFPAY ==
[~2021-03-13] VITALS: Ht 162.6 cm; Wt 63.5 kg
[~2021-03-13 12:50] MED LIST changes: -MONT10TA27 PO; +MONT10TA33 PO
[2021-03-13 13:18] VITALS: BP_SYST 120
--- NOTE | 2021-03-13 13:20 | NUR ---
Patient to ER TENT1 to gown for evaluation. Side rails up.
--- NOTE | 2021-03-13 13:30 | NUR ---
PT PRESENTS TO ED C/O URINARY SYMPTOMS. PT REPORTS BEING COVID POSITIVE.
--- NOTE | 2021-03-13 14:00 | NUR ---
ER at bedside examining patient.
[2021-03-13 15:11] LABS: BILIRUBIN,URINE NEGATIVE (NEGATIVE); BLOOD, URINE NEGATIVE (NEGATIVE); CLARITY/URINE CLEAR (CLEAR); COLOR,URINE YELLOW (YELLOW); GLUCOSE,URINE NEGATIVE (NEGATIVE); KETONES,URINE NEGATIVE (NEGATIVE); LEUKOCYTE ESTERASE ,URINE NEGATIVE (NEGATIVE); NITRITE, URINE NEGATIVE (NEGATIVE); PH,URINE 8.5 (5.0-8.0); PROTEIN URINE NEGATIVE (NEGATIVE); UROBILINOGEN,URINE 0.2 (0.2-1.0)
[2021-03-13 16:00] VITALS: BP_SYST 122
--- NOTE | 2021-03-13 16:00 | NUR ---
Patient given written and verbal discharge instructions and verbalizes understanding. ER MD discussed with patient the results and treatment provided. Patient in stable condition. ID arm band removed. NO Rx given. Patient educated on pain management and to follow up with PMD. Pain Scale 0. Opportunity for questions provided and answered. Medication side effect fact sheet provided.
== END 2021-03-13 16:00 | disposition home or self-care (01) ==
LOC: SED 12:50
DX: U07.1 COVID-19 (principal); R30.0 Dysuria; J45.909 Unspecified asthma, uncomplicated; Z79.899 Other long term (current) drug therapy
CPT/HCPCS: 81003; 99283

== ENCOUNTER 2021-11-17 11:40 | Emergency (ER) | payer BC, MEDICAID ==
[~2021-11-17] VITALS: Ht 154.9 cm; Wt 61.2 kg
[~2021-11-17 11:40] MED LIST changes: +MONT-40 PO; -MONT10TA33 PO
[2021-11-17 11:56] VITALS: BP_SYST 142
[2021-11-17] MEDS ORDERED: LORazepam 1 MG TABLET PO ONE (12:00)
[2021-11-17 12:14] LABS: BASOPHILS % (AUTO) 0.4 % (0.0-2.0); EOSINOPHILS % (AUTO) 0.5 % (0.0-4.0); HEMATOCRIT 46.3 % (36-48); HEMOGLOBIN 15.8 g/dL (12.0-16.0); LYMPHOCYTES # (AUTO) 0.7 K/uL (1.0-5.5); LYMPHOCYTES % (AUTO) 8.3 % (20.5-51.5); MEAN CORPUSCULAR HEMOGLOBIN 28 pg (27-31); MEAN CORPUSCULAR HGB CONC 34 % (32-36); MEAN CORPUSCULAR VOLUME 82 fL (79.0-98.0); MONOCYTES # (AUTO) 0.7 K/uL (0.0-1.0); MONOCYTES % (AUTO) 7.5 % (1.7-9.3); NEUTROPHILS # (AUTO) 7.5 K/uL (1.8-7.7); NEUTROPHILS % (AUTO) 83.3 % (40.0-70.0); PLATELET COUNT (AUTO) 295 K/uL (130-430); RED BLOOD CELL COUNT(AUTO) 5.63 MIL/uL (4.2-6.2); RED CELL DISTRIBUTION WIDTH 13.1 % (9.0-15.0)
[2021-11-17 12:26] LABS: CALCIUM 9.2 mg/dL (8.4-11.0); CREATININE 0.88 mg/dL (0.55-1.30); POTASSIUM 3.3 mmol/L (3.5-5.1)
[2021-11-17 12:31] LABS: PHOSPHORUS 2.9 mg/dL (2.7-4.5)
[2021-11-17] MEDS ORDERED: ONDA-8 TL (13:05)
[2021-11-17] MEDS ORDERED: VIS50 PO (13:07)
[2021-11-17] MEDS ORDERED: NIRM1TAB PO (13:13)
[2021-11-17 13:44] LABS: BILIRUBIN,URINE NEGATIVE (NEGATIVE); BLOOD, URINE 1+ (NEGATIVE); CLARITY/URINE SL CLOUDY (CLEAR); COLOR,URINE YELLOW (YELLOW); GLUCOSE,URINE NEGATIVE (NEGATIVE); KETONES,URINE 1+ (NEGATIVE); LEUKOCYTE ESTERASE ,URINE TRACE (NEGATIVE); NITRITE, URINE NEGATIVE (NEGATIVE); PROTEIN URINE 1+ (NEGATIVE)
[2021-11-17 14:06] LABS: BACTERIA,URINE FEW /HPF (None Seen); MUCUS,URINE 1+ /LPF (None Seen)
[2021-11-17] MEDS ORDERED: ONDANSETRON 4 MG ODT TAB PO ONE (14:30)
[2021-11-17 14:39] VITALS: BP_SYST 142
== END 2021-11-17 14:39 | disposition home or self-care (01) ==
LOC: SED 11:40
DX: U07.1 COVID-19 (principal); F43.0 Acute stress reaction
CPT/HCPCS: 99284; 87426; 80048; 81000; 83735; 84100; 85025; 87086; 36415; 93005; 81025; 87804 ×2; Q0162

== ENCOUNTER 2021-11-17 22:34 | Emergency (ER) | payer BC, MEDICAID ==
[~2021-11-17] VITALS: Ht 165.1 cm; Wt 67.1 kg
[~2021-11-17 22:34] MED LIST changes: +NIRM1TAB PO; +ONDA-8 TL; +VIS50 PO
[2021-11-17 23:00] VITALS: BP_SYST 134
[2021-11-17] MEDS ORDERED: METOCLOPRAMIDE HCL 10 MG/2 ML VIAL IM ONE (23:30)
[2021-11-17] MEDS ORDERED: DIPHENHYDRAMINE INJ 50 MG/ML VIAL IM ONE (23:30)
[2021-11-18 00:26] VITALS: BP_SYST 129
== END 2021-11-18 00:26 | disposition home or self-care (01) ==
LOC: SED 22:34
DX: U07.1 COVID-19 (principal); R11.2 Nausea with vomiting, unspecified; J45.909 Unspecified asthma, uncomplicated; Z79.899 Other long term (current) drug therapy
CPT/HCPCS: 99284; 96372; J1200; J2765

== ENCOUNTER 2022-05-29 20:25 | Emergency (ER) | payer BC, MEDICAID ==
[~2022-05-29] VITALS: Ht 160 cm; Wt 66.7 kg
[2022-05-29 22:04] VITALS: BP_SYST 129
--- NOTE | 2022-05-29 22:08 | NUR ---
Patient triaged and placed in waiting room. VSS and patient appears in no acute distress at this time. Accompanied by self, awaiting available bed, and MD notified of need for MSE.
--- NOTE | 2022-05-29 22:45 | NUR ---
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
--- NOTE | 2022-05-29 23:00 | NUR ---
PT FROM HOME WITH C/O URINARY FREQ AND LOWER BACK PAIN, X 3DAYS. PT HAVE EXISTING UTI AND IS ALREADY ON ANTIBIOTICS. PT AMBULATORY AND FOLLOWING COMMANDS.
[2022-05-29 23:12] LABS: BILIRUBIN,URINE NEGATIVE (NEGATIVE); CLARITY/URINE CLEAR (CLEAR); COLOR,URINE YELLOW (YELLOW); GLUCOSE,URINE NEGATIVE (NEGATIVE); KETONES,URINE NEGATIVE (NEGATIVE); LEUKOCYTE ESTERASE ,URINE TRACE (NEGATIVE); NITRITE, URINE NEGATIVE (NEGATIVE); PROTEIN URINE NEGATIVE (NEGATIVE); UROBILINOGEN,URINE 0.2 (0.2-1.0)
--- NOTE | 2022-05-29 23:25 | NUR ---
Patient to ER bed 02 to gown for evaluation. Side rails up.
--- NOTE | 2022-05-29 23:27 | NUR ---
PT SET UP FOR PELVIC EXAM PER PROTOCOL.
[2022-05-29 23:39] LABS: BLOOD, URINE TRACE (NEGATIVE)
[2022-05-29 23:58] LABS: RBC,URINE 0-3 /HPF (0-3)
[2022-05-29 23:59] LABS: BACTERIA,URINE FEW /HPF (None Seen); YEAST,URINE Few /HPF (None Seen)
[2022-05-30] LABS: MUCUS,URINE 1+ /LPF (None Seen)
--- NOTE | 2022-05-30 00:05 | NUR ---
DR. TAYLOR AT BEDSIDE WITH PATIENT.
--- NOTE | 2022-05-30 00:07 | NUR ---
[facility] COLLECTED DURING VAGINAL EXAM. MYSELF STAND BY AT [facility].
[2022-05-30] MEDS ORDERED: METR45GE5 TP (01:44)
[2022-05-30] MEDS ORDERED: CIPR500T5 PO (01:44)
[2022-05-30] MEDS ORDERED: METO-290 PO (01:44)
[2022-05-30 02:05] VITALS: BP_SYST 129
--- NOTE | 2022-05-30 02:05 | NUR ---
Patient given written and verbal discharge instructions and verbalizes understanding. ER Dr. Crouch discussed with patient the results and treatment provided. Patient in stable condition. ID arm band removed. Rx of cipro, reglan given. Patient educated on pain management and to follow up with PMD. Pain Scale 0. Opportunity for questions provided and answered. Medication side effect fact sheet provided.
== END 2022-05-30 02:05 | disposition home or self-care (01) ==
LOC: SED 20:25
DX: N39.0 Urinary tract infection, site not specified (principal); N76.0 Acute vaginitis; Z79.899 Other long term (current) drug therapy
CPT/HCPCS: 81000; 81025; 87086; 87210-TC; 99283